=== PATIENT | female | born 1950 | race Caucasian/White ===

== ENCOUNTER 2018-12-21 03:52 | Inpatient (IN) ==
[2018-12-21] MEDS ORDERED: NS 500 ML IV ONE (03:58)
[2018-12-21] MEDS ORDERED: ZOFRAN IV ONE (03:58)
[2018-12-21] MEDS ORDERED: MORPHINE IV ONE (03:58)
[2018-12-21] MEDS ORDERED: LOPRESSOR IV ONE (04:21)
[2018-12-21 04:37] LABS: BASO# 0.04 X1000 (0.0-0.2); BASO% 0.4 % (0.0-0.8); EOS# 0.18 X1000 (0.0-0.7); EOS% 1.7 % (0.0-10.0); HEMOGLOBIN 14.7 g/dL (12.0-16.0); IMM GRAN# 0.05 X1000 (0.0-0.04); IMM GRAN% 0.5 % (0.0-0.5); LYMPH# 1.75 X1000 (1.2-3.4); LYMPH% 16.7 % (20.5-51.1); MCH 27.2 PG (27-31); MCHC 32.7 g/dL (33-37); MCV 83.2 FL (81-99); MONO# 0.71 X1000 (0.11-0.59); MONO% 6.8 % (1.7-9.3); MPV 12.1 FL (7.4-10.4); NEUT# 7.77 X1000 (1.4-6.5); NEUT% 73.9 % (42.2-75.2); PLT 189 X1000 (130-400); RBC 5.41 XMIL (4.2-5.4); RDW 15.4 % (11.5-14.5)
[2018-12-21 04:41] LABS: INR 0.81; PROTIME 11.8 Seconds (11.0-16.0)
[2018-12-21 04:42] LABS: PTT 27.7 Seconds (22.3-41.8)
[2018-12-21 05:05] LABS: AGAP 16; ALB/GLOB RATIO 1.1; ALBUMIN 3.7 g/dL (3.5-5.0); ALKALINE PHOSPHATASE 149 U/L (32-104); BUN 22 mg/dL (8-22); CALCIUM 9.2 mg/dL (8.8-10.2); CHLORIDE 105 mmol/L (98-107); CK PROFILE 51 U/L (24-173); COSMO 294; CREATININE 0.8 mg/dL (0.5-0.9); ESTIMATED GFR > 60; GLUCOSE 266 mg/dL (70-104); GOT 121 U/L (10-30); GPT 410 U/L (10-36); POTASSIUM 4.7 mmol/L (3.5-5.1); SODIUM 141 mmol/L (136-145); TCO2 20 mmol/L (25-35); TOTAL BILIRUBIN 0.32 mg/dL (0.20-1.00)
[2018-12-21] MEDS ORDERED: FENTANYL IV ONE (05:47)
--- NOTE | 2018-12-21 06:05 | PROVIDER DOCUMENTATION ---
HPI-General Adult - General Chief Complaint: Heart Alert Stated Complaint: possible stemi Time Seen by Provider: 12/21/18 03:58 Source: patient, EMS Allergies/Adverse Reactions: Patient Allergies Allergy/AdvReac Type Severity Reaction Status Date / Time adhesive tape Allergy skin Verified 07/19/16 16:49 blisters codeine Allergy ITCHING Verified 07/19/16 16:49 latex Allergy RASH Verified 07/19/16 16:49 Home Medications: Home Medication List Medication Instructions Recorded Confirmed Last Taken Type Pregabalin [Lyrica] 150 mg PO BID 04/01/15 07/19/16 07/19/16 08:00 History Hydrocodone/APAP 7.5 mg/325 mg 1 - 2 each PO Q4H PRN PRN #30 04/08/15 Unknown Rx [Fischer-7.5] tablet Cephalexin [Keflex] 500 mg PO BID #20 capsule 07/19/16 Unknown Rx - History of Present Illness -Gen Adult Nature of Presenting Problems: Pt presents with cp, pt awoke with cp to upper abdominal pain, had n/v x 1 and called EMS, pain is sharp, no radiation, pt denies f/c, cheney, sob, cough, diarrhea, pt is lying in bed in no acute distress. Location of Pain/Injury: reports: chest, abdomen Pain Radiation: reports: no radiation Quality of Pain: reports: sharp Severity: reports: moderate Onset/Duration: reports: 1-3 hours ago Timing: reports: still present Context/Activities at Onset: reports: none Modifying Factors: improves with: nothing Associated Symptoms: reports: nausea, vomiting Similar Symptoms Previously?: No Recently seen or treated by another doctor?: No Review of Systems - Adult - REVIEW OF SYSTEMS - ADULT Constitutional: reports: no symptoms reported Eyes: reports: no symptoms reported Ears, Nose, Mouth & Throat: reports: no symptoms reported Cardiovascular: reports: see HPI Respiratory: reports: no symptoms reported Gastrointestinal: reports: see HPI Genitourinary: reports: no symptoms reported Musculoskeletal: reports: no symptoms reported Integumentary: reports: no symptoms reported Neurological: reports: no symptoms reported Psychiatric: reports: no symptoms reported Endocrine: reports: no symptoms reported Hematologic/Lymphatic: reports: no symptoms reported Allergic/Immunologic: reports: no symptoms reported All Other Systems: Reviewed and Negative Past History - Adult - PAST MEDICAL HISTORY-ADULT Review of Records: reports: Old Records Reviewed, Nursing Assessment Review, Medications Reviewed, Social history reviewed & non-contributory. Major Childhood Illnesses: reports: denies history Cardiovascular: reports: denies history Respiratory: reports: denies history Gastrointestinal: reports: denies history Obstetrical/Gynecological: reports: denies history Genitourinary: reports: denies history Musculoskeletal: reports: denies history Neurological: reports: denies history Endocrine/Immune: reports: denies history Other Conditions: reports: denies history - FAMILY HISTORY Family History: reviewed, not pertinent Physical Exam-General - PHYSICAL EXAM-ADULT Initial Vital Signs Reviewed: Yes - CONSTITUTIONAL General Appearance: appears well - EYES Eyes: PERRL/EOMI - HEAD, EARS, NOSE, MOUTH & THROAT HENMT: normal ENT inspection - NECK Neck: normal inspection - RESPIRATORY Respiratory: lungs clear, no respiratory distress, no accessory muscle use - CARDIOVASCULAR Cardiovascular: regular rate, rhythm - GASTROINTESTINAL (ABDOMEN) Abdominal Exam: non tender, soft - LYMPHATIC Lymphatic: no adenopathy - MUSCULOSKELETAL Back Exam: normal inspection Extremity: normal range of motion - SKIN Integumentary: normal color - NEUROLOGIC Neurologic: grossly normal - PSYCHIATRIC Psych/Mental Status: normal mood/affect Progress - PLAN OF CARE/RESULTS Progress/Plan/Lab Results: Vital Signs - 8 hr 12/21/18 03:55 12/21/18 04:02 12/21/18 04:04 Temperature 97.9 F Pulse Rate 53 L 86 Respiratory Rate 18 Blood Pressure 178/120 207/88 191/91 O2 Sat by Pulse Oximetry 96 99 99 12/21/18 04:10 12/21/18 04:17 12/21/18 04:20 Temperature 97.9 F Pulse Rate 70 67 68 Respiratory Rate 16 16 12 Blood Pressure 212/95 212/95 O2 Sat by Pulse Oximetry 100 100 100 12/21/18 04:30 12/21/18 04:31 12/21/18 04:40 Temperature Pulse Rate 69 71 70 Respiratory Rate 27 H 18 9 L Blood Pressure 196/87 O2 Sat by Pulse Oximetry 99 100 100 12/21/18 04:50 12/21/18 04:51 12/21/18 05:00 Temperature 98 F Pulse Rate 66 70 65 Respiratory Rate 11 L 21 18 Blood Pressure 211/88 O2 Sat by Pulse Oximetry 98 99 100 12/21/18 05:01 12/21/18 05:10 Temperature Pulse Rate 66 64 Respiratory Rate 21 10 L Blood Pressure 207/88 O2 Sat by Pulse Oximetry 100 100 Laboratory Results - last 24 hr 12/21/18 12/21/18 12/21/18 04:10 04:10 04:10 WBC 10.50 RBC 5.41 H Hgb 14.7 Hct 45.0 MCV 83.2 MCH 27.2 MCHC 32.7 L RDW Std Deviation 15.4 H Plt Count 189 MPV 12.1 H Immature Gran % (Auto) 0.5 Neut % (Auto) 73.9 Lymph % (Auto) 16.7 L Gregg % (Auto) 6.8 Eos % (Auto) 1.7 Baso % (Auto) 0.4 Immature Gran # (Auto) 0.05 H Neut # (Auto) 7.77 H Lymph # (Auto) 1.75 Gregg # (Auto) 0.71 H Eos # (Auto) 0.18 Baso # (Auto) 0.04 PT 11.8 INR 0.81 PTT (Actin FS) 27.7 Sodium 141 Potassium 4.7 Chloride 105 Carbon Dioxide 20 L Anion Gap 16 BUN 22 Creatinine 0.8 Estimated GFR/1.73 m2 > 60 BUN/Creatinine Ratio 28 Glucose 266 H Calculated Osmolality 294 Calcium 9.2 Total Bilirubin 0.32 AST 121 H ALT 410 H Alkaline Phosphatase 149 H Creatine Kinase 51 Troponin T Total Protein 7.0 Albumin 3.7 Globulin 3.3 Albumin/Globulin Ratio 1.1 12/21/18 04:10 WBC RBC Hgb Hct MCV MCH MCHC RDW Std Deviation Plt Count MPV Immature Gran % (Auto) Neut % (Auto) Lymph % (Auto) Gregg % (Auto) Eos % (Auto) Baso % (Auto) Immature Gran # (Auto) Neut # (Auto) Lymph # (Auto) Gregg # (Auto) Eos # (Auto) Baso # (Auto) PT INR PTT (Actin FS) Sodium Potassium Chloride Carbon Dioxide Anion Gap BUN Creatinine Estimated GFR/1.73 m2 BUN/Creatinine Ratio Glucose Calculated Osmolality Calcium Total Bilirubin AST ALT Alkaline Phosphatase Creatine Kinase Troponin T < 0.010 Total Protein Albumin Globulin Albumin/Globulin Ratio Orders Category Date Time Status CT ABD/PELVIS W/IV CONT ONLY [CT] Stat Exams 12/21/18 05:09 Taken cxr [CHEST-1 VIEW] [RAD] Stat Exams 12/21/18 03:58 Taken CBC WITH ELECTRONIC DIFF [HEME] Stat Lab 12/21/18 04:10 Completed CK PROFILE [SP CHEM] Stat Lab 12/21/18 04:10 Completed COMPREHENSIVE METABOLIC PANEL [CHEM] Stat Lab 12/21/18 04:10 Completed PT [PROTIME WITH INR] [COAG] Stat Lab 12/21/18 04:10 Completed PTT [COAG] Stat Lab 12/21/18 04:10 Completed TROPONIN T Stat Lab 12/21/18 04:10 Completed 0.9% Sodium Chloride Inj [Ns] 500 ml Med 12/21/18 03:58 Discontinued IV 999 mls/hr Fentanyl Med 12/21/18 05:47 Discontinued 50 microgm IV NOW ONE Metoprolol [Lopressor] Med 12/21/18 04:21 Discontinued 5 mg IV NOW ONE Morphine Med 12/21/18 03:58 Discontinued 4 mg IV NOW ONE Ondansetron [Zofran] Med 12/21/18 03:58 Discontinued 8 mg IV NOW ONE EKG [EKG] Stat Ther 12/21/18 03:53 Ordered Result Diagrams: 12/21/18 04:10 12/21/18 04:10 Departure - Departure Date of Disposition Decision: 12/21/18 Time of Disposition Decision: 07:53 DIAGNOSIS: Perforated ulcer Disposition: ADMITTED INPATIENT 09 Certified Medical Emergency: Emergent Condition: Serious Referrals and Follow-Ups: Shelton Vernon MD [Primary Care Provider] - - Critical Care Note This patient required my direct & personal management of CC.: No Attestation - Physician/ ISIAH Attestation Patient care was provided by Advanced Practice Provider:: No The physician spent face to face time with patient:: Yes Advanced Practice Provider documentation review:: Supervising physician onsite and consulted in the evaluation and care of this patient. The physician did have a face to face encounter with the patient.
--- NOTE | 2018-12-21 06:54 | Diag Imaging Result Doc PS360 ---
EXAM: CHEST-1 VIEW 12/21/2018 HISTORY: chest pain TECHNIQUE: AP portable at 0429 COMMENT: The inspiration is less optimal than on 01/11/2011. There are no focal opacities. Considering differences in projection the heart size and pulmonary vascularity have not changed significantly. IMPRESSION: No acute disease. Electronically signed by Hussain Weems 12/21/2018 6:52 AM
[2018-12-21] MEDS ORDERED: ZOSYN 3.375 GM in NS 50 ML IV ONE (07:44)
[2018-12-21] MEDS ORDERED: DIPRIVAN 1% ONE (07:55)
[2018-12-21] MEDS ORDERED: VERSED ONE (07:55)
[2018-12-21] MEDS ORDERED: XYLOCAINE-MPF 2% ONE (07:55)
[2018-12-21] MEDS ORDERED: QUELICIN (DOSE) ONE (07:56)
[2018-12-21] MEDS ORDERED: FENTANYL ONE (07:56)
[2018-12-21] MEDS ORDERED: SODIUM CHLORIDE 0.9% 10 ML ONE (07:56)
[2018-12-21] MEDS ORDERED: DILAUDID IV ONE (08:09)
--- NOTE | 2018-12-21 09:16 | Diag Imaging Result Doc PS360 ---
EXAM: CT ABD/PELVIS W/IV CONT ONLY 12/21/2018 HISTORY: colitis TECHNIQUE: This exam was performed using automated exposure control, adjustment of mA or kV according to patient size, and/or use of iterative reconstruction technique. COMMENT: There is some dependent atelectasis in both lung bases. This is worse than on 10/08/2015 and there is platelike opacity in both the right middle lobe and lingula. This may in part be due to fibrosis as it was present at the time the previous study. There is ascites. This was not the case at the time the previous examination. The aorta is not distended. There are atherosclerotic calcifications. The mesenteric and renal arteries are patent. There is some retained fluid in the distal esophagus. There is a hiatal hernia. There has apparently been gastric bypass. The gastric remnant is distended with fluid which was not the case at the time the previous study. The portal vein is patent. The liver, pancreas, adrenal glands, and spleen are stable in appearance. There are some cortical cysts present in the kidneys and some cortical scarring is present over the right lower pole. This was also present at the time the previous study. There is some stool throughout the colon. There is no evidence of mucosal thickening in the colon and the small bowel is not particularly distended. There are gas bubbles adjacent to the duodenum including air-fluid level seen best between images 38 and 42 in the subhepatic region near the gallbladder fossa. There has been previous cholecystectomy. This fluid collection and extraluminal gas was not present at the time the previous study. Pelvis: There is no evidence of free fluid. The urinary bladder is slightly distended. There is no evidence of significant adenopathy. There has been previous hysterectomy. There is a fat collection between the external oblique muscle and the remainder of the pelvic wall on the right. This was also present at the time of the previous study. The regional skeleton is stable in appearance. IMPRESSION: Abnormal fluid and gas collection lateral to the duodenum which may be result of focal perforation. Ascites/peritonitis. Electronically signed by Hussain Weems 12/21/2018 9:14 AM
[2018-12-21] MEDS ORDERED: EPHEDRINE ONE (09:46)
[2018-12-21 10:01] LABS: URINE SOURCE CATH
[2018-12-21 10:07] LABS: BILIRUBIN URINE NEGATIVE (NEGATIVE); BLOOD URINE SMALL (NEGATIVE); COLOR YELLOW; GLUCOSE URINE 500 mg/dL (NEGATIVE); KETONE URINE 20 mg/dL (NEGATIVE); LEUKOCYTES URINE NEGATIVE (NEGATIVE); NITRITE URINE NEGATIVE (NEGATIVE); PROTEIN URINE 200 mg/dL (NEGATIVE); TURBIDITY URINE CLEAR (CLEAR); UROBILINOGEN URINE NORMAL (NORMAL)
[2018-12-21 10:08] LABS: UR EPITHELIAL CELLS <10 /HPF (<10); URINE BACTERIA NEGATIVE /HPF; URINE RBC <10 /HPF (<10); URINE WBC <10 /HPF (<10)
[2018-12-21] MEDS ORDERED: ROBINUL ONE (10:21)
[2018-12-21] MEDS ORDERED: NEOSTIGMINE ONE (10:21)
[2018-12-21] MEDS ORDERED: NEO-SYNEPHRINE 1% NASAL SPRAY ONE (10:36)
[2018-12-21] MEDS ORDERED: AMIDATE ONE (10:52)
[2018-12-21] MEDS: OFIRMEV 1000 MG/ISOTONIC SOLN 1,000 MG/100 ML BOTTLE ONE ×2 (11:50→20:29)
[2018-12-21] MEDS ORDERED: LR 1,000 ML ONE (11:52)
[2018-12-21] MEDS ORDERED: LR 1,000 ML IV ONE (13:01)
[2018-12-21] MEDS ORDERED: PROTONIX 80 MG in NS 80 ML IV ONE (13:01)
[2018-12-21] MEDS ORDERED: ZOFRAN IV PRN (13:01)
[2018-12-21] MEDS: ZOSYN 3.375 GM in NS 50 ML IV SCH ×2 (13:15→18:36)
[2018-12-21] MEDS: OFIRMEV 1000 MG/ISOTONIC SOLN 1,000 MG/100 ML BOTTLE IV SCH ×2 (13:15→18:36)
[2018-12-21] MEDS: DILAUDID IV PRN ×2 (13:16→21:26)
[2018-12-21] MEDS ORDERED: LOPRESSOR IV PRN (13:37)
[2018-12-21] MEDS: PROTONIX 80 MG in NS 80 ML IV SCH ×2 (14:00→23:45)
[2018-12-21] MEDS: HUMALOG SUBQ SCH ×2 (15:41→21:09)
[2018-12-21] MEDS: PERIDEX MT SCH (21:26)
--- NOTE | 2018-12-21 22:25 | HISTORY AND PHYSICAL ---
DATE: 12/21/2018 HISTORY OF PRESENT ILLNESS: This is a 68-year-old female who has a history of a sleeve gastrectomy several years ago by Dr. Oliver. She had a 50 pounds weight loss and subsequent regain of 30 pounds. She also has a history of a renal cell carcinoma treated with partial nephrectomy, and breast carcinoma treated with bilateral mastectomy and implant reconstruction. Last night she developed severe epigastric abdominal pain, diaphoresis. Prior to this, she was in her usual state of health. She denies smoking, alcohol or NSAID abuse. She has had colonoscopies within the year that was, apparently, normal. She came to the ER, where a CT scan was obtained that showed free air, free fluid concerning for perforated ulcer of the duodenum. MEDICAL HISTORY: 1. History of breast cancer, history of renal cell cancer. 2. Diabetes. 3. Hypertension. SURGICAL HISTORY: 1. Laparoscopic sleeve gastrectomy by Dr. Oliver several years ago. 2. Partial nephrectomy, I believe on the right. 3. Bilateral mastectomies with emergency services dispatcher reconstruction. SOCIAL HISTORY: No tobacco, alcohol, or drugs. FAMILY HISTORY: Reviewed and noncontributory. REVIEW OF SYSTEMS: Ten point negative. OBJECTIVE: General: She is afebrile. Pulse is 72. Blood pressures have been 180s to 200 systolic, oxygen saturation 99% on 2 L. General: She is alert, but in obvious discomfort. HEENT: No scleral icterus. No cervical mass. Cardiovascular: Normal rate. Pulmonary: No increased work of breathing. Abdomen: Soft. There is guarding and rigidity throughout. It is distended. Integument: Diaphoretic without jaundice. Psychiatric: Very anxious. Neurologic: No focal deficits. Peripheral vascular: She does have lower extremity edema. Lymphatic: No cervical adenopathy. Musculoskeletal: Normal muscle tone throughout. LABS: White count 10, hematocrit 45, platelets 189,000. INR 0.81. Creatinine 0.8. Glucose 266, bilirubin 0.32, AST, ALT and alkaline phosphatase are elevated. Troponin's are normal. Albumin is 3.7. I reviewed her CT scan, it shows free fluid and air around the duodenum, with changes consistent with sleeve gastrectomy and bilateral breast implants. ASSESSMENT AND PLAN: A 68-year-old female with apparent perforated ulcer. She has peritonitis, free air and free fluid on exam. I have recommended emergent operation. We will place an NG tube. Start on antibiotics. I have discussed risks of bleeding, infection, the possibility of gastrectomy, the possibility of a feeding jejunostomy, possible ostomy, possible resections of her stomach, small bowel, or colon. She understands all this and consents. She understands the emergent nature and the possibility of requiring subsequent operations as well as cardiopulmonary complication. We will treat her pain, start her on antibiotics, and go to the operating room emergently this morning. cc: MD Shelton Vilchis MD
[2018-12-22] MEDS: DILAUDID IV PRN ×5 (01:24→21:34)
[2018-12-22] MEDS: ZOSYN 3.375 GM in NS 50 ML IV SCH ×5 (01:56→18:38)
[2018-12-22] MEDS: OFIRMEV 1000 MG/ISOTONIC SOLN 1,000 MG/100 ML BOTTLE IV SCH ×3 (01:56→06:32)
--- NOTE | 2018-12-22 02:12 | ED EKG INTERP ---
This chart was entered by Sandra Figueroa Scribe, acting as scribe for Anton Villegas MD. EKG Interpretation - EKG Time of EKG reading by physician:: 03:55 EKG Read and Signed by:: Anton Villegas EKG Interpretation (*Must complete 3 of following elements*): Abnormal Rate: 60 Rhythm: NSR [place]: left QRS: other (septal infarct) [place] Interval: normal ST Wave: normal Attestation - Physician/ ISIAH Attestation Patient care was provided by Advanced Practice Provider:: No The physician spent face to face time with patient:: Yes Advanced Practice Provider documentation review:: Supervising physician onsite and consulted in the evaluation and care of this patient. The physician did have a face to face encounter with the patient. This chart was documented by the indicated scribe, (Sandra Figueroa Scribe) and accurately reflects the services I performed and decisions made by me, Anton Villegas MD, as attested by the provider's signature.
[2018-12-22] MEDS: HUMALOG SUBQ SCH ×5 (05:49→21:00)
[2018-12-22 06:24] LABS: HEMATOCRIT 44.3 % (37.0-47.0); HEMOGLOBIN 14.2 g/dL (12.0-16.0); MCH 27.3 PG (27-31); MCHC 32.1 g/dL (33-37); MCV 85.2 FL (81-99); MPV 11.8 FL (7.4-10.4); RBC 5.2 XMIL (4.2-5.4); RDW 16.3 % (11.5-14.5); WBC 7.54 X1000 (4.8-10.8)
[2018-12-22 07:03] LABS: CALCIUM 7.4 mg/dL (8.8-10.2); CREATININE 1.2 mg/dL (0.5-0.9); POTASSIUM 4.8 mmol/L (3.5-5.1)
--- NOTE | 2018-12-22 07:20 | OPERATIVE NOTE ---
PROCEDURE DATE: 12/21/2018 PREOPERATIVE DIAGNOSIS: Perforated viscus. POSTOPERATIVE DIAGNOSES: 1. Perforated duodenal ulcer. 2. Internal hernia defect. 3. Diffuse bilious peritonitis. PROCEDURES PERFORMED: 1. Exploratory laparotomy with Chuck patch repair of perforated duodenal ulcer. 2. Repair of Liriano's defect. 3. Biopsy of duodenal ulcer. SPECIMENS: Biopsy of duodenal ulcer. SURGEON: Dr. Serge Luna. ANESTHESIA: General. INDICATIONS: A 68-year-old female who has a history of bariatric surgery. Initially this was billed as a sleeve gastrectomy, however, intraoperative findings consistent with a Orestes-en-Y gastric bypass, who presented with acute onset of abdominal discomfort. OPERATIVE FINDINGS: There was diffuse bilious peritonitis with a small perforation of the lateral aspect of the second portion of the duodenum. There was Orestes-en-Y anatomy. There appeared to be no abnormality to the gastrojejunostomy or the jejunojejunostomy. There was no evidence of distal obstruction or internal herniation. There was a large Liriano's defect that we closed. There is a scar to her lower midline from previous partial nephrectomy. OPERATIVE NOTE: Risks, benefits, alternatives were discussed with the patient, she consented for procedure. She was initially seen in the emergency department and noted to have peritonitis, was taken emergently to the operating room. She was on scheduled antibiotics. She was placed in supine position. General anesthesia was induced. Her abdomen was prepped widely with chlorhexidine solution after Craven catheter was placed, and we made a midline incision, carried this down the fascia. The fascia was incised, the abdomen was entered in open controlled fashion. We evacuated a large volume of bile in all quadrants of the abdomen. We suctioned this all until clear. There was significant staining in the right upper quadrant underneath the liver. There is post cholecystectomy changes as well. We identified a lateral perforation with fresh bile emanating from this. We performed a Zhang maneuver to mobilize the duodenum up. We then mobilized the tongue and well vascularized omentum off the transverse colon. Prior to doing this, we freshened the edge of the ulcer and sent this as biopsy. There was healthy bleeding, well perfused tissue here. Given the position of the ulcer, we elected to close it with full-thickness interrupted 3-0 silk sutures and then patched this with the tongue of omentum with a second layer of 3-0 silks. There was good closure here. There was no tension on the repair. The tissues were well perfused. We placed it back in the right upper quadrant and then copiously irrigated the abdomen. We passed the nasogastric tube down the gastric remnant. I did run the bowel starting distally proximally, ensured there was no herniation. Placed it back in neutral position. The jejunojejunostomy defect was well closed. However, there was an antecolic Orestes limb with good defect here. We closed this to, hopefully, prevent future internal herniation. After irrigating the abdomen with greater than 3 L of fluid, we placed a Theron drain in the right upper quadrant. There was no evidence of ongoing bile leakage. The Theron drain was brought out through a stab incision, was secured with a nylon suture. We changed our gloves. A wound protector was used during the case. We closed the fascia with a running #1 looped PDS suture, irrigating the superficial wound, we closed the skin with surgical clips. Dressing was applied. She was awoken, transferred to the ICU. I did speak with the family. cc: MD Shelton Vilchis MD
--- NOTE | 2018-12-22 08:08 | CONSULTATION ---
DATE OF CONSULTATION: 12/21/2018 CONSULTING PHYSICIAN: Dr. Serge Luna. REASON FOR CONSULTATION: Medical management. HISTORY OF PRESENT ILLNESS: The patient is a 68-year-old, white female who presented to the ER early this morning after having some vomiting and abdominal pain. She was found to have evidence of free fluid in her abdomen suggesting perforation. She was taken to surgery and perforation was repaired. About 7 o'clock last evening, she ate supper and had an episode of nausea and vomiting. She had no hematemesis. There has been no melena and no diarrhea. She has had no fever. There is no history of ulcer disease. There is a long history of diabetes and relative poor compliance. PAST SURGERY HISTORY: Surgery includes cholecystectomy, hysterectomy, and breast surgery for breast cancer. PRESENT MEDICATIONS: Keflex, [place] 7.5/325 q.6 hours p.r.n., and Lyrica 150 mg b.i.d. for peripheral neuropathy. ALLERGIES: Adhesive tape, codeine, and latex. PHYSICAL EXAMINATION: The patient is postop with NG tube in place. HEENT: Pupils equal, round, and reactive to light. Mucous membranes are slightly pale. Heart: Regular in rate and rhythm with no murmur, rub, or gallop. Lungs: Clear with no rales or rhonchi. Abdomen: Soft. Extremities: No cyanosis, clubbing, or edema. Rectal and Genitalia: Deferred. LABORATORY DATA: Hemoglobin 14.7, hematocrit 45.0, white blood count 10,500 with normal differential. Sodium 141, potassium 4.7, BUN 22, creatinine 0.8, glucose 266. AST 121, ALT 410, and alkaline phosphatase 149. CPK 51, troponin less than 0.01. Total protein 7.0, albumin 3.1, globulin 3.3. IMPRESSION: 1. Perforated viscus, probably related to duodenal ulcer. 2. Diabetes. 3. Diabetic neuropathy of her feet. 4. History of breast cancer. PLAN: Manage her diabetes with sliding scale insulin and blood pressure control with Lopressor. cc: Shelton Vernon MD
[2018-12-22] MEDS ORDERED: NS 1,000 ML IV ONE (08:09)
[2018-12-22] MEDS: PERIDEX MT SCH ×2 (08:16→21:34)
[2018-12-22] MEDS: LOVENOX SUBQ SCH (08:19)
[2018-12-22] MEDS: PROTONIX 80 MG in NS 80 ML IV SCH ×2 (09:24→18:38)
--- NOTE | 2018-12-22 10:17 | PROGRESS NOTE ---
DATE: 12/22/2018 OBJECTIVE: Vital signs: Temperature 98, heart rate 88, respirations 18, blood pressure 69/50, sitting in a chair. General: The patient is alert, but sedated related to pain medicine. Abdomen: Her abdomen is soft. There was no vomiting overnight. Chest: Is clear. LABORATORY: Hemoglobin 14.2, hematocrit 44.3, white blood count 7500. Sodium 140, potassium 4.8, BUN 21, creatinine 1.2, glucose 196, calcium 7.4. PLAN: Plan give bolus of normal saline, 1 L. Keep in ICU today for close observation and assistance. cc: Shelton Vernon MD
--- NOTE | 2018-12-22 21:26 | GENERAL SURGERY PROGRESS NOTE ---
DATE: 12/22/2018 SUBJECTIVE: Doing okay. No flatus. Hemodynamically she is stable. NG tube is bothersome to her. ELIJAH drain remains serosanguineous with no bile. OBJECTIVE: Her abdomen is mildly distended. Incision is intact. White count 7, hematocrit 44. Creatinine is 1.2, glucose as high as 196. ASSESSMENT AND PLAN: A 68-year-old female status post repair of duodenal ulcer. She is on Zosyn. She is on a PPI drip. Dr. Vernon is managing her hypertension and blood sugars. Keeping her NPO for now. Plan on removing the nasogastric tube tomorrow. Begin gradually advancing her diet with return of bowel function. cc: MD Shelton Vilchis MD
[2018-12-23] MEDS: ZOSYN 3.375 GM in NS 50 ML IV SCH ×4 (01:29→18:00)
[2018-12-23] MEDS: DILAUDID IV PRN ×3 (02:42→19:20)
[2018-12-23] MEDS: PROTONIX 80 MG in NS 80 ML IV SCH ×2 (05:22→15:28)
[2018-12-23] MEDS: HUMALOG SUBQ SCH ×4 (06:07→20:16)
--- NOTE | 2018-12-23 08:00 | EKG Report ---
Test Performed on : 12/21/2018 03:55:09 AM Test Reason : cp Blood Pressure : / mmHG Vent. Rate : 060 BPM Atrial Rate : 060 BPM P-R Int : 174 ms QRS Dur : 090 ms QT Int : 424 ms P-R-T Axes : 054 -47 035 degrees QTc Int : 424 ms Normal sinus rhythm. Left axis deviation Septal infarct (cited on or before 01-APR-2015) Abnormal ECG When compared with ECG of 01-APR-2015 14:23, No significant change was found Unconfirmed Result
[2018-12-23] MEDS: LOVENOX SUBQ SCH (08:04)
[2018-12-23] MEDS: PERIDEX MT SCH ×2 (08:05→20:17)
--- NOTE | 2018-12-23 08:38 | PROGRESS NOTE ---
DATE: 12/23/2018 Vital signs stable with temperature 98.0 degrees, heart rate 98, respirations 13, blood pressure 140/62, O2 saturation on room air 96%. The patient complains of increasing pain not covered by her pain medicine. She has had no nausea. Chest is clear. There is some mild dried blood on her surgical dressing. Abdomen is soft. Bowel sounds are inactive. PLAN: Check BMP today and CBC tomorrow. Dilaudid is increased to 0.5 mg q.3 hours p.r.n. pain. Continue to get up in a chair and increase movement. cc: Shelton Vernon MD
--- NOTE | 2018-12-23 09:08 | EKG Report ---
Test Performed on : 12/22/2018 12:17:07 PM Test Reason : ICU. No order in [place] Blood Pressure : / mmHG Vent. Rate : 087 BPM Atrial Rate : 087 BPM P-R Int : 140 ms QRS Dur : 094 ms QT Int : 416 ms P-R-T Axes : 070 007 135 degrees QTc Int : 500 ms Sinus rhythm. with occasional premature ventricular complexes. Nonspecific ST and T wave abnormality Abnormal ECG When compared with ECG of 21-DEC-2018 03:55, (Unconfirmed) premature ventricular complexes. are now present QRS axis shifted right Criteria for Septal infarct are no longer present Nonspecific T wave abnormality now evident in Inferior leads Nonspecific T wave abnormality, worse in Lateral leads QT has lengthened Confirmed by Maikel PEREZ, Duane Hung ([id number]) on 12/23/2018 9:28:50 AM
[2018-12-23 09:54] LABS: CREATININE 1.1 mg/dL (0.5-0.9); POTASSIUM 4.5 mmol/L (3.5-5.1)
[2018-12-23 10:21] LABS: CALCIUM 6.9 mg/dL (8.8-10.2)
[2018-12-23] MEDS ORDERED: CALCIUM GLUCONATE 1 GM in NS 50 ML IV ONE (10:28)
--- NOTE | 2018-12-23 16:09 | GENERAL SURGERY PROGRESS NOTE ---
DATE: 12/23/2018 SUBJECTIVE: Doing okay. No bowel function yet. ELIJAH drain is serosanguineous. OBJECTIVE: On exam, her abdomen is soft. Incisions intact. NG tube has minimal output. No fevers. No tachycardia. Blood pressure 130/60. LABORATORY DATA: I reviewed her labs. Creatinine is 1.1. Glucose is in the 170s. ASSESSMENT/PLAN: 68-year-old female that is status post repair of duodenal ulcer. We will discontinue her NG tube and a Craven catheter today. Encourage him to be out of bed. She is on antibiotics as well as a PPI drip and transition this to b.i.d. next couple days. cc: MD Shelton Vilchis MD
[2018-12-24] MEDS: PROTONIX 80 MG in NS 80 ML IV SCH ×2 (00:50→13:52)
[2018-12-24] MEDS: ZOSYN 3.375 GM in NS 50 ML IV SCH ×4 (00:54→18:47)
[2018-12-24 06:09] LABS: BASO# 0.02 X1000 (0.0-0.2); BASO% 0.3 % (0.0-0.8); EOS# 0.06 X1000 (0.0-0.7); EOS% 0.8 % (0.0-10.0); HEMATOCRIT 35.2 % (37.0-47.0); HEMOGLOBIN 11.1 g/dL (12.0-16.0); IMM GRAN# 0.06 X1000 (0.0-0.04); IMM GRAN% 0.8 % (0.0-0.5); LYMPH# 0.84 X1000 (1.2-3.4); LYMPH% 10.8 % (20.5-51.1); MCH 27.2 PG (27-31); MCHC 31.5 g/dL (33-37); MCV 86.3 FL (81-99); MONO# 1.06 X1000 (0.11-0.59); MONO% 13.6 % (1.7-9.3); MPV 11.7 FL (7.4-10.4); NEUT# 5.74 X1000 (1.4-6.5); NEUT% 73.7 % (42.2-75.2); PLT 208 X1000 (130-400); RBC 4.08 XMIL (4.2-5.4); RDW 16.3 % (11.5-14.5); WBC 7.78 X1000 (4.8-10.8)
[2018-12-24] MEDS: DILAUDID IV PRN ×5 (06:10→23:26)
[2018-12-24] MEDS: HUMALOG SUBQ SCH ×4 (06:45→21:04)
[2018-12-24] MEDS: LOVENOX SUBQ SCH (09:17)
[2018-12-24] MEDS: PERIDEX MT SCH ×3 (09:17→20:10)
--- NOTE | 2018-12-24 09:25 | PROGRESS NOTE ---
DATE: 12/24/2018 OBJECTIVE: Vital signs stable with temperature 97.5 degrees, heart rate 96, respirations 16, blood pressure 139/52, and O2 saturation on room air 92%. Patient is somewhat confused, but sitting up in a chair. She states she had some gas passed per rectum late last evening and early this morning. ELIJAH drain has minimal drainage. LABORATORY: Hemoglobin 11.1, hematocrit 35.2, white blood count 7800 with 74% neutrophils. Sugars are less than 200. Routine insulin will be restarted after she is able to take p.o. liquids or solids. Also regular p.o. medicines will be restarted after she can take p.o. liquids. PLAN: Continue to ambulate. Maikel-Betts drain may be removed soon. I cc: Shelton Vernon MD
[2018-12-24] MEDS ORDERED: PROTONIX IV SCH (11:30)
[2018-12-24] MEDS ORDERED: LABETALOL IV ONE (12:00)
[2018-12-24] MEDS ORDERED: SODIUM CHLORIDE 0.9% INJ SCH (13:45)
[2018-12-24] MEDS: NEXIUM IV SCH (13:58)
--- NOTE | 2018-12-24 18:29 | GENERAL SURGERY PROGRESS NOTE ---
DATE: 12/24/2018 SUBJECTIVE: Doing okay. OBJECTIVE: No fevers. No tachycardia. Abdomen is soft. Dressing is intact. ELIJAH drain is serosanguineous. LABORATORY DATA: White count is 7, hematocrit 35. Glucose 180. ASSESSMENT AND PLAN: A 68-year-old female status post repair of duodenal ulcer. Overall she is doing okay. She remains on PPI. She is on antibiotics, prophylactic Lovenox. We will continue to monitor her closely. cc: MD Shelton Vilchis MD
[2018-12-25] MEDS: ZOSYN 3.375 GM in NS 50 ML IV SCH ×4 (01:27→20:53)
[2018-12-25] MEDS: NEXIUM IV SCH (01:28)
[2018-12-25] MEDS: DILAUDID IV PRN ×2 (02:36→06:34)
[2018-12-25] MEDS: HUMALOG SUBQ SCH ×4 (06:34→21:34)
[2018-12-25] MEDS: LOVENOX SUBQ SCH (10:35)
[2018-12-25] MEDS: PERIDEX MT SCH ×2 (10:35→20:54)
[2018-12-25] MEDS: NORCO-10 PO PRN ×2 (10:36→20:54)
[2018-12-25] MEDS: HYZAAR 50/12.5 MG PO SCH (10:45)
[2018-12-25] MEDS: LYRICA PO SCH ×2 (10:51→20:54)
--- NOTE | 2018-12-25 10:53 | PROGRESS NOTE ---
DATE: 12/25/2018 Vital signs stable with temperature 98.2 degrees, heart rate 88, respirations 18, blood pressure 184/93, O2 saturation on room air 100%. Patient is weak and has difficulty moving from her bed to a chair. Physical therapy is assisting. Orders are to ambulate her with non physical therapy t.i.d. The patient desires to go to rehab following discharge for additional strengthening. Last 2 blood sugars were 168 and 138. PLAN: Clear liquids p.o., continued mobilization, p.o. medications. cc: Shelton Vernon MD
[2018-12-25] MEDS ORDERED: BENADRYL PO ONE (12:45)
[2018-12-25] MEDS ORDERED: BENADRYL PO PRN ×2 (12:45→13:00)
[2018-12-25] MEDS: PROTONIX PO SCH ×2 (12:54→18:22)
--- NOTE | 2018-12-25 14:43 | GENERAL SURGERY PROGRESS NOTE ---
DATE: 12/25/2018 SUBJECTIVE: She is complaining about her back hurting. ELIJAH drainage remains serosanguineous. Abdomen is soft. No fevers, no tachycardia overnight. She is on Lovenox. She is on a PPI and Zosyn. ASSESSMENT/PLAN: A 68-year-old female status post perforated duodenal ulcer. She needs to be out of bed moving more. Will work on her pain control. She does have chronic pain issues. Clear liquids today; we will get her full liquids tomorrow. Remove her drain in the next day or so if it remains nonbilious. I am going out of town and will have partial coverage for me while I am out. cc: MD Shelton Vilchis MD
[2018-12-25] MEDS: GLUCOPHAGE PO SCH (18:22)
[2018-12-26] MEDS: ZOSYN 3.375 GM in NS 50 ML IV SCH ×4 (01:09→18:54)
[2018-12-26] MEDS: NORCO-10 PO PRN ×3 (02:30→21:21)
[2018-12-26] MEDS: HUMALOG SUBQ SCH ×4 (06:38→23:36)
[2018-12-26] MEDS: PROTONIX PO SCH ×2 (06:39→18:52)
[2018-12-26] MEDS: LOVENOX SUBQ SCH (08:41)
[2018-12-26] MEDS: LYRICA PO SCH ×2 (08:41→21:17)
[2018-12-26] MEDS: GLUCOPHAGE PO SCH ×2 (08:41→17:22)
[2018-12-26] MEDS: PERIDEX MT SCH ×2 (08:41→21:18)
[2018-12-26] MEDS: HYZAAR 50/12.5 MG PO SCH (08:41)
--- NOTE | 2018-12-26 08:44 | PROGRESS NOTE ---
DATE: 12/26/2018 VITAL SIGNS: Temperature 98.1 degrees, heart rate 70, respirations 15, blood pressure 101/39, O2 sat on room air 94%. Patient is tolerating p.o. liquids without nausea. She is not getting up much to ambulate. She complains with mild right-sided mid abdominal discomfort. Abdomen is soft. PLAN: Increase activity, increase diet. Rehab when a bed is available. cc: Shelton Vernon MD
[2018-12-27] MEDS: ZOSYN 3.375 GM in NS 50 ML IV SCH ×4 (01:40→21:11)
--- NOTE | 2018-12-27 02:40 | GENERAL SURGERY PROGRESS NOTE ---
DATE: 12/26/2018 SUBJECTIVE: She is having intermittent nausea and weakness, but she did eat some soft food today and has ambulated down the henley. OBJECTIVE: She is afebrile. Vital signs are stable.General: She is awake, alert, and oriented x3. No acute distress. Cardiovascular: Regular rate and rhythm. Respiratory: No work of breathing. Gastrointestinal: Soft, nondistended. Mildly tender. Dressing is clean and dry. LABORATORY: None today. ASSESSMENT AND PLAN: A 68-year-old female status post Chuck patch repair of perforated duodenal ulcer. Overall, she seems to be making slow improvement. We will continue her soft diet and daily therapy, and she will go to rehab when a bed is available. I may remove the drain tomorrow. cc: MD Shelton Woods MD
[2018-12-27] MEDS: PROTONIX PO SCH ×2 (06:22→18:44)
[2018-12-27] MEDS: HUMALOG SUBQ SCH ×4 (07:03→21:09)
--- NOTE | 2018-12-27 08:42 | Diag Imaging Result Doc PS360 ---
EXAM: CHEST-PORTABLE 12/27/2018 HISTORY: SOB TECHNIQUE: AP portable upright at 0832 COMMENT: The inspiration is suboptimal. There is atelectasis or pneumonia in both lung bases which was not the case on 12/21/2018. The heart size appears to be enlarged. There are surgical skin clips in the upper abdomen. There is an apparent drain in the subhepatic space on the right. IMPRESSION: Bibasilar atelectasis. Electronically signed by Hussain Weems 12/27/2018 8:40 AM
[2018-12-27] MEDS: NS 1,000 ML IV SCH (10:25)
--- NOTE | 2018-12-27 10:39 | PROGRESS NOTE ---
DATE: 12/27/2018 SUBJECTIVE: The patient was ambulatory in the henley yesterday. She talked about dying and her late last night to family. She had a sudden episode of unresponsiveness and hypoxia this morning requiring a mask, and her being placed in Trendelenburg. Venous Doppler study of her legs revealed no clots. Chest x-ray showed basilar atelectasis versus pneumonia. She had a low-grade temperature last night of 99.4 and this morning 99.1. Last white blood count 521 with 7800 with 74% neutrophils. She was seen by me this morning while having her venous Doppler study. She would not arouse or speak to verbal stimulation. PLAN: She will need to be kept until her respiratory mental status improves. CT scan of her head is ordered as well as CT angiogram of her chest. A rehab bed was ready today, but due to her episode this morning, she will be kept probably until Sunday. Dr. Gandara is on-call for me this weekend. cc: Shelton Vernon MD
[2018-12-27] MEDS: HYZAAR 50/12.5 MG PO SCH (10:43)
[2018-12-27] MEDS: PERIDEX MT SCH ×2 (10:43→21:11)
[2018-12-27] MEDS: LOVENOX SUBQ SCH (10:44)
[2018-12-27] MEDS: GLUCOPHAGE PO SCH ×2 (10:44→18:44)
[2018-12-27] MEDS: LYRICA PO SCH ×2 (10:44→21:10)
[2018-12-27] MEDS: TYLENOL PO PRN (10:45)
[2018-12-27 11:18] LABS: BASO# 0.06 X1000 (0.0-0.2); BASO% 0.4 % (0.0-0.8); CALCIUM 8.3 mg/dL (8.8-10.2); CREATININE 2.1 mg/dL (0.5-0.9); EOS# 0.13 X1000 (0.0-0.7); EOS% 0.8 % (0.0-10.0); HEMOGLOBIN 9.5 g/dL (12.0-16.0); IMM GRAN# 0.62 X1000 (0.0-0.04); IMM GRAN% 3.8 % (0.0-0.5); LYMPH# 1.19 X1000 (1.2-3.4); LYMPH% 7.3 % (20.5-51.1); MCH 27.1 PG (27-31); MCHC 31.7 g/dL (33-37); MCV 85.5 FL (81-99); MONO# 1.85 X1000 (0.11-0.59); MONO% 11.3 % (1.7-9.3); MPV 10.8 FL (7.4-10.4); NEUT# 12.46 X1000 (1.4-6.5); NEUT% 76.4 % (42.2-75.2); PLT 294 X1000 (130-400); POTASSIUM 3.3 mmol/L (3.5-5.1); RBC 3.51 XMIL (4.2-5.4); RDW 15.9 % (11.5-14.5); WBC 16.31 X1000 (4.8-10.8)
[2018-12-27 11:39] LABS: BANDS 6 % (0-1); LYMPHS 2 % (21-51); MONO 8 % (1-9); SEGS 80 % (42-75)
--- NOTE | 2018-12-27 13:15 | Diag Imaging Result Doc PS360 ---
EXAM: CT HEAD W/O CONTRAST HISTORY: acute mental change TECHNIQUE: CT head without contrast COMPARISON: 07/19/2016 FINDINGS: No parenchymal hemorrhage. No epidural or subdural hematoma. No subarachnoid hemorrhage. There are chronic microvascular ischemic changes. No mass identified on this noncontrasted exam. No hydrocephalus. No sinus opacification. IMPRESSION: 1.No hemorrhage 2.Chronic microvascular ischemic changes This exam was performed using automated exposure control, adjustment of mA or kV according to patient size, and/or use of iterative reconstruction technique. Electronically signed by Hossein Jenkins 12/27/2018 1:13 PM
--- NOTE | 2018-12-27 14:14 | Diag Imaging Result Doc PS360 ---
EXAM: LUNG SCAN / VQ 12/27/2018 HISTORY: possible VTE TECHNIQUE: Ventilation/perfusion lung scan, 32.9 mCi of technetium 99m DTPA aerosol and 5.7 mCi of technetium 99m MAA intravenously. COMMENT: There is no evidence of ventilation/perfusion mismatch. No absolute segmental perfusion defect is present. IMPRESSION: Low probability for pulmonary embolus. Electronically signed by Hussain Weems 12/27/2018 2:11 PM
--- NOTE | 2018-12-27 14:45 | GENERAL SURGERY PROGRESS NOTE ---
DATE: 12/27/2018 SUBJECTIVE: This morning the patient apparently has had a change in her status. She is more somnolent and difficult to arouse. She has had hypoxia and a fever. She did walk down the henley last night but has been very weak in general. She denies headache, nausea, vomiting, chest pain, shortness of breath, or abdominal pain. OBJECTIVE: Vital Signs: Current temperature is 101. T-max last night at 8 o'clock was 102.1. Pulse is in the 90s. Respiratory rate is 14 to 16. She did have a hypotensive episode at 7:57 this morning where she was 78/51. Now her blood pressure is 114/43. O2 saturation ranges from 77% to 100%. General: She is somnolent but arousable with stimulation. She is oriented to her name and place and knows her sister. She missed the current year by 1 year. CV: Regular rate and rhythm. There is a murmur appreciated. Respiratory: Bilateral breath sounds. No increased work of breathing. No wheezing or rales appreciated. GI: Soft and nontender. Good bowel sounds. Incision is clean, dry, and intact. ELIJAH drain is without bile. Extremities: Her hands and feet appear to have good color and temperature. No evidence of perfusion abnormality of the extremities. LABORATORY DATA: Pending. IMAGING: Chest x-ray this morning shows bibasilar atelectasis or pneumonia. It is different from the prior on 12/21/2018. ASSESSMENT AND PLAN: A 68-year-old female status post Chuck patch repair of perforated duodenal ulcer. She had seemed to be making some progress, however, overnight she now has fever, hypoxia, decreased mentation, and episodes of hypotension. Workup is including a CBC, CMP, CT angiogram of the chest and CT of the head. We will follow these results today. She is on Zosyn and may need to add vancomycin for hospital-acquired pneumonia. We will discuss with Dr. Vernon once results are back. cc: MD Shelton Woods MD
[2018-12-27 16:57] LABS: INR 1.31; PROTIME 17.3 Seconds (11.0-16.0)
[2018-12-27 16:58] LABS: PTT 46.2 Seconds (22.3-41.8)
[2018-12-27] MEDS ORDERED: VANCOMYCIN IV PER PHARMACY MISC SCH (17:00)
[2018-12-27 17:47] LABS: CK-MB 9.14 ng/mL (0.0-5.0)
[2018-12-27] MEDS ORDERED: VANCOMYCIN 1,600 MG in NS 250 ML IV ONE (18:00)
[2018-12-27] MEDS: NORCO-10 PO PRN (23:25)
--- NOTE | 2018-12-28 00:39 | Extremity Venous Study ---
PROCEDURE NAME: Venous U/S Bilateral Legs - 12/27/2018 REQUEST PHYSICIAN: Dr. Vernon. READING PHYSICIAN: Dr. Sesay. CEMENT TESTER ASSISTANT: Wil. INDICATION: Hypoxia and fever postoperatively. FINDINGS: The deep and superficial veins of the lower extremities were imaged throughout their course. They are compressible, patent, and without thrombus. A cystic area is noted in the right popliteal fossa measuring 1.9 cm in greatest dimension. INTERPRETATION: No DVT or SVT of either lower extremity. There is a small right popliteal cyst. cc: MD Shelton Woods MD
[2018-12-28] MEDS: ZOSYN 3.375 GM in NS 50 ML IV SCH ×4 (03:20→22:50)
[2018-12-28] MEDS: NS 1,000 ML IV SCH ×2 (03:20→16:53)
[2018-12-28] MEDS: PROTONIX PO SCH ×3 (05:44→18:12)
[2018-12-28] MEDS: HUMALOG SUBQ SCH ×4 (06:53→21:15)
[2018-12-28 07:49] LABS: CREATININE 3.1 mg/dL (0.5-0.9); POTASSIUM 3.6 mmol/L (3.5-5.1)
[2018-12-28 07:56] LABS: BASO# 0.05 X1000 (0.0-0.2); BASO% 0.3 % (0.0-0.8); EOS% 1.5 % (0.0-10.0); HEMOGLOBIN 9.4 g/dL (12.0-16.0); IMM GRAN# 0.53 X1000 (0.0-0.04); IMM GRAN% 2.7 % (0.0-0.5); LYMPH# 1.91 X1000 (1.2-3.4); LYMPH% 9.8 % (20.5-51.1); MCH 26.9 PG (27-31); MCHC 31.3 g/dL (33-37); MONO# 1.67 X1000 (0.11-0.59); MONO% 8.5 % (1.7-9.3); MPV 11.2 FL (7.4-10.4); NEUT# 15.08 X1000 (1.4-6.5); NEUT% 77.2 % (42.2-75.2); PLT 284 X1000 (130-400); RBC 3.49 XMIL (4.2-5.4); RDW 16.1 % (11.5-14.5); WBC 19.54 X1000 (4.8-10.8)
[2018-12-28 08:49] LABS: BANDS 14 % (0-1); LYMPHS 10 % (21-51); MONO 8 % (1-9); SEGS 68 % (42-75)
[2018-12-28] MEDS: GLUCOPHAGE PO SCH (10:47)
[2018-12-28] MEDS: LOVENOX SUBQ SCH (10:47)
[2018-12-28] MEDS: HYZAAR 50/12.5 MG PO SCH (10:47)
[2018-12-28] MEDS: PERIDEX MT SCH ×2 (10:48→22:50)
[2018-12-28] MEDS: LYRICA PO SCH (10:48)
[2018-12-28 13:20] LABS: URINE SOURCE CATH
[2018-12-28 13:36] LABS: BILIRUBIN URINE NEGATIVE (NEGATIVE); BLOOD URINE SMALL (NEGATIVE); COLOR YELLOW; GLUCOSE URINE TRACE mg/dL (NEGATIVE); KETONE URINE TRACE mg/dL (NEGATIVE); LEUKOCYTES URINE NEGATIVE (NEGATIVE); NITRITE URINE NEGATIVE (NEGATIVE); PH URINE 5.5; PROTEIN URINE 50 mg/dL (NEGATIVE); SP GRAVITY URINE 1.018; TURBIDITY URINE TURBID (CLEAR); UROBILINOGEN URINE NORMAL (NORMAL)
[2018-12-28 13:38] LABS: UR EPITHELIAL CELLS <10 /HPF (<10); URINE BACTERIA NEGATIVE /HPF; URINE RBC TNTC /HPF (<10)
[2018-12-28 13:44] LABS: URINE CASTS NONE SEEN; URINE YEAST PRESENT
--- NOTE | 2018-12-28 16:07 | Diag Imaging Result Doc PS360 ---
EXAM: CT ABDOMEN W/O CONTRAST HISTORY: kidneys/sepsis/infection TECHNIQUE: Emergent CT abdomen without contrast COMPARISON: 12/21/2018 FINDINGS: interval development of a small to moderate-sized right-sided pleural effusion measuring 3.0 cm posteriorly and inferiorly in the midline. There is atelectasis and infiltrates in the right lower lobe. There are postsurgical changes in the abdomen with midline skin [place] and a right upper quadrant drain. No well-defined fluid collection or abscess. There is a small amount of fluid in the right paracolic gutter and about the liver. The spleen is not enlarged. No inflammation about the pancreas. Normal adrenal glands. There is scarring to the right kidney. No renal stones or hydronephrosis. No aortic aneurysm. No bowel obstruction. IMPRESSION: 1.Interval development of a right pleural effusion with basilar atelectasis and infiltrates 2.Postsurgical changes within the abdomen, but no well-defined fluid collection or abscess This exam was performed using automated exposure control, adjustment of mA or kV according to patient size, and/or use of iterative reconstruction technique. Electronically signed by Hossein Jenkins 12/28/2018 4:05 PM
[2018-12-28] MEDS: TYLENOL PO PRN ×2 (16:48→22:53)
[2018-12-28 18:34] LABS: AMYLASE BODY FLUID 66 U/L
--- NOTE | 2018-12-28 22:00 | PROGRESS NOTE ---
DATE: 12/28/2018 SUBJECTIVE: A 68-year-old, white female, admitted to the hospital with perforated viscus last Sunday by Dr. Luna. She was in ICU. She was doing very nicely until yesterday afternoon. She was sitting out of the bed and completely unresponsive, hypoxic, no blood pressure. The patient was seen by Dr. Sesay and Dr. Vernon. Interval history workup was done. This morning, patient was awake, slightly confused. The patient's niece is at bedside. She is eating breakfast and lunch. However, the increasing white cell count, increasing creatinine. Bladder scan reported 140 mL. Craven has been ordered. Waiting to be discussed further about the Living Will and future plans with [id number]. PAST MEDICAL HISTORY: Reviewed. PAST SURGICAL HISTORY: Reviewed. MEDICATIONS: Reviewed. ALLERGIES: Codeine and latex. EXAM: Vital Signs: She is running low-grade fever, pulse 92, blood pressure 103/38 on 2.5 L, 100%. HEENT Exam: She is mentally lucid, able to follow with verbal commands. Chest: Bilateral air entry. Heart: Sounds are regular. Abdomen: Belly is soft and midline scar present. ELIJAH drain still draining. Extremities: Spider veins. No edema noted. LABS: White cell count is going up 19.54, hematocrit 30, platelets 284. Sodium 133, potassium 3.6, BUN 30, creatinine 3.1, glucose 173, CK was high. Plasma lactate level is less than 2. Cultures: Blood cultures pending. ASSESSMENT AND PLAN: 1. Postoperative day 7 perforated duodenal ulcer with Chuck patch. Still ELIJAH drain is draining. 2. Syncope spell, etiology to be determined. 3. Acute kidney injury. Craven was placed. Continue IV fluids. We will get further workup. 4. Acute kidney injury. Creatinine is 3. I am going to discontinue metformin and hypotension. Discontinue losartan. 5. Deep vein thrombosis prophylaxis with Lovenox. 6. Continue IV fluids and perforated viscus with peritonitis. Currently, she is on Zosyn and vancomycin was ordered yesterday. If things will not get better consider Dr. Padilla consult for elevated white cell count and repeat CT scan of the abdomen and pelvis. 7. Apparently yesterday, the patient had altered mental status. CT was negative and also possible pulmonary embolism. Dopplers and ventilation-perfusion scan were negative. We will follow up. LEVEL OF DOCUMENTATION: 35 minutes. cc: MD Shelton Mckinney MD
[2018-12-29] MEDS: NS 1,000 ML IV SCH (03:44)
[2018-12-29] MEDS: NORCO-10 PO PRN ×2 (04:06→15:33)
--- NOTE | 2018-12-29 04:41 | GENERAL SURGERY PROGRESS NOTE ---
DATE: 12/28/2018 SUBJECTIVE: The patient remains in and out of consciousness. She is arousable and will interact. I questioned her and she denied abdominal pain, nausea, vomiting. She did complain of some back pain only. OBJECTIVE: Vital signs: She is afebrile. Vital signs are stable. However, pulse is somewhat elevated over the last 24 hours now, in the 90s to low 100s. Blood pressure 103/38. O2 saturation 100%. General: She is somnolent, but arousable. She does follow commands, but she quickly dozes back off. Cardiovascular: Regular rate and rhythm. Respiratory: Bilateral breath sounds, but decreased in the bases. Gastrointestinal: Soft, mildly tender, nondistended. Incision is clean, dry, and intact. ELIJAH drain has some serous brown drainage. No devonte bile appreciated, although there might be a tinge of bile. LABORATORY: White blood cell count 19,000, hemoglobin 9, hematocrit 30. Electrolytes reviewed, notable for BUN of 30, creatinine 3.1. Urinalysis notable for white blood cells. IMAGING: A V/Q scan yesterday was negative for pulmonary embolus. ASSESSMENT/PLAN: A 58-year-old female with acute delirium and probable pneumonia, status post Chuck patch repair of perforated duodenal ulcer. She is now being covered with the antibiotics Zosyn and vancomycin. I am giving her some gentle hydration. She also has acute kidney injury. We have ordered urine culture and a Craven catheter to be placed, and we have also ordered a CT scan of her abdomen to look for an occult source of sepsis. cc: MD Shelton Woods MD
[2018-12-29] MEDS: HUMALOG SUBQ SCH ×4 (06:43→21:17)
[2018-12-29 07:10] LABS: CALCIUM 7.1 mg/dL (8.8-10.2); CREATININE 4.5 mg/dL (0.5-0.9); POTASSIUM 4.1 mmol/L (3.5-5.1)
[2018-12-29 07:11] LABS: ALB/GLOB RATIO 0.9; ALBUMIN 2.1 g/dL (3.5-5.0); TOTAL BILIRUBIN 0.39 mg/dL (0.20-1.00); TOTAL PROTEIN 4.4 g/dL (6.3-8.3)
[2018-12-29 07:12] LABS: BASO# 0.04 X1000 (0.0-0.2); BASO% 0.2 % (0.0-0.8); EOS# 0.31 X1000 (0.0-0.7); EOS% 1.5 % (0.0-10.0); HEMATOCRIT 28.8 % (37.0-47.0); HEMOGLOBIN 9.1 g/dL (12.0-16.0); IMM GRAN# 0.27 X1000 (0.0-0.04); IMM GRAN% 1.3 % (0.0-0.5); LYMPH# 1.19 X1000 (1.2-3.4); LYMPH% 5.9 % (20.5-51.1); MCH 27.1 PG (27-31); MCHC 31.6 g/dL (33-37); MCV 85.7 FL (81-99); MONO# 1.47 X1000 (0.11-0.59); MONO% 7.3 % (1.7-9.3); MPV 11.4 FL (7.4-10.4); NEUT# 16.85 X1000 (1.4-6.5); NEUT% 83.8 % (42.2-75.2); PLT 306 X1000 (130-400); RBC 3.36 XMIL (4.2-5.4); RDW 16.3 % (11.5-14.5); WBC 20.13 X1000 (4.8-10.8)
--- NOTE | 2018-12-29 07:18 | Diag Imaging Result Doc PS360 ---
EXAM: CHEST-1 VIEW HISTORY: SOB TECHNIQUE: Portable chest single view COMPARISON: 12/27/2018 FINDINGS: Poor inspiratory effort. There is atelectasis and possible underlying infiltrates in the right lung base. There is a small right pleural effusion. The heart is enlarged and there is pulmonary edema. IMPRESSION: Mixed areas of improvement and worsening. Electronically signed by Hossein Jenkins 12/29/2018 7:16 AM
[2018-12-29 08:18] LABS: CK INDEX 1.2 (0.0-2.5); CK-MB 2.66 ng/mL (0.0-5.0)
[2018-12-29] MEDS: PROTONIX PO SCH ×2 (11:11→19:00)
[2018-12-29] MEDS: LOVENOX SUBQ SCH (11:14)
[2018-12-29] MEDS: PERIDEX MT SCH ×2 (11:14→21:17)
[2018-12-29] MEDS: ZOSYN 2.25 GM in NS 50 ML IV SCH ×3 (11:19→23:06)
[2018-12-29 13:37] LABS: UR CREAT RANDOM 65.1 mg/dL (11-20); UR PROT RANDOM 69.2 mg/dL
[2018-12-29] MEDS: SODIUM BICARBONATE 8.4% 150 MEQ in D5W 1,000 ML IV SCH (14:06)
--- NOTE | 2018-12-29 14:20 | GENERAL SURGERY PROGRESS NOTE ---
DATE: 12/29/2018 SUBJECTIVE: She is feeling better. No acute events overnight. She denies abdominal pain, nausea or vomiting. OBJECTIVE: Vital Signs: T max 101.3. Current temperature 99.5. Vital signs are stable. Blood blood pressure is 92/35. Urine output 660 mL. General: She is awake and alert, appears more energetic today. She is oriented x 3. Cardiovascular: Regular rate and rhythm. Respiratory: Bilateral breath sounds decreased in the bases. Gastrointestinal: Soft, nontender, nondistended. Incision is clean, dry and intact. ELIJAH drain nonbilious. LABORATORY: White blood cell count 20,000, hemoglobin 9.1, hematocrit 28. Electrolytes reviewed and unremarkable. The ELIJAH drain amylase is 66. Microbiology urine culture is pending. IMAGING: CT of abdomen and pelvis was reviewed yesterday. There are some postsurgical changes in the abdomen, but no evidence of free air or large volume free fluid. She does have bilateral pleural effusions and basilar infiltrates. ASSESSMENT AND PLAN: A 68-year-old female status post Chuck patch repair of perforated duodenal ulcer. Postoperatively, she has had some delirium, leukocytosis, fever and probable pneumonia. She is on vancomycin and Zosyn. No further surgery recommendations at this time. cc: MD Shelton Woods MD
--- NOTE | 2018-12-29 14:30 | PROGRESS NOTE ---
DATE: 12/29/2018 SUBJECTIVE: The patient is awake, intermittent confusion. Daughter was at bedside. Living will has been discussed. No decision was made. Events noted. CT scan of the abdomen and pelvis noted. Some pleural effusion on the right side and also no intra-abdominal abscess noted. ELIJAH drain was present. Discussed with Dr. Sesay and Craven was placed last night. Urine output was decreased and she is on gentle hydration. Not eating very well. EXAMINATION: Temperature is 98 degrees, pulse rate is 98, blood pressure is 126/48, 3 L nasal cannula 90%. Urine output is decreased. She is awake. She is not in respiratory distress. Decreased breath sounds, right side. Heart sounds are regular. Belly is soft. ELIJAH drain was present. No signs of peritonitis. No peripheral edema. INVESTIGATIONS: CBC: White cell count 20, hematocrit 28, platelets 306,000. Sodium 132, potassium 4.1, BUN 36, creatinine 4.5, glucose 154. Cardiac enzymes were negative. Troponin was negative. ASSESSMENT AND PLAN: 1. Postoperative day eight from perforated viscus with Chuck patch due to duodenal ulcer. Continue on Protonix 40 by mouth twice a day. 2. Elevated white cell count, possible aspiration. Added on intravenous vancomycin and Zosyn. 3. Acute kidney injury due to hypotension and gentle hydration, and Dr. Washington consult. Baseline creatinine 1.2. A Craven was placed. CT did not show any hydronephrosis. She did have partial nephrectomy on the right side for renal cancer. 4. Right pleural effusion. Continue to watch. 5. Deep venous thrombosis prophylaxis with Lovenox. 6. Intravenous fluids, on 100 mL an hour. 7. Living will has been discussed. No decision was made. 8. Daily monitoring of the renal profile and chest x-ray. 9. History of diabetes. I discontinued metformin. Follow up on the sliding scale. 10. Hypotension. Discontinue losartan and we will follow up. LEVEL OF DOCUMENTATION: 25 minutes. cc: MD Shelton Mckinney MD
[2018-12-29] MEDS ORDERED: VANCOMYCIN 1,200 MG in NS 250 ML IV SCH (18:00)
[2018-12-30] MEDS: TYLENOL PO PRN ×4 (00:44→22:58)
[2018-12-30] MEDS: SODIUM BICARBONATE 8.4% 150 MEQ in D5W 1,000 ML IV SCH ×3 (03:14→22:58)
[2018-12-30] MEDS: ZOSYN 2.25 GM in NS 50 ML IV SCH ×4 (05:22→22:58)
[2018-12-30 06:24] LABS: ALBUMIN 1.7 g/dL (3.5-5.0); CALCIUM 7.5 mg/dL (8.8-10.2); CREATININE 5.1 mg/dL (0.5-0.9); PHOSPHORUS 4.8 mg/dL (2.7-4.5); POTASSIUM 3.5 mmol/L (3.5-5.1)
[2018-12-30] MEDS: HUMALOG SUBQ SCH ×4 (06:48→21:43)
[2018-12-30] MEDS: PROTONIX PO SCH ×3 (06:49→20:23)
--- NOTE | 2018-12-30 07:34 | Diag Imaging Result Doc PS360 ---
EXAM: CHEST-1 VIEW HISTORY: SOB TECHNIQUE: Portable chest single view COMPARISON: 12/29/2018 FINDINGS: Poor inspiratory effort. Heart is mildly enlarged and there is pulmonary edema. There is a small right pleural effusion. There may be underlying infiltrates in the right base. The overall appearance is similar to the prior exam. IMPRESSION: No interval improvement. Electronically signed by Hossein Jenkins 12/30/2018 7:32 AM
[2018-12-30] MEDS: PERIDEX MT SCH ×2 (10:42→20:24)
[2018-12-30] MEDS: LOVENOX SUBQ SCH (10:42)
--- NOTE | 2018-12-30 11:46 | GENERAL SURGERY PROGRESS NOTE ---
DATE: 12/30/2018 SUBJECTIVE: From a GI standpoint, she is having bowel function. Her drain is clear. She is tolerating some clear liquids. OBJECTIVE: On exam, she did have a fever of 102.1 last, was afebrile this morning. Pulse 84, blood pressure 130/61. Her abdomen is soft. ELIJAH drain is serosanguineous. The Craven bag has clear urine. Her white count was up to 20 yesterday. Her creatinine has been climbing. It is 5.1. Glucoses are elevated. Urinalysis did show white blood cells. Urine sodium was 46. She had a drain amylase that was 66. Chest x-ray shows right-sided effusions, likely consolidation consistent with pneumonia. She is on vancomycin and Zosyn. The nephrologists have seen her but I do not see the recommendations yet. ASSESSMENT AND PLAN: This is a 68-year-old female with status post duodenal ulcer repair. She seems to have pneumonia and worsening renal dysfunction associated with this. I reviewed her CT scan. On exam, her incision is intact. Her drain is clear with no purulence and no bile. She is on fluids, started by the nephrology service. She is on prophylactic Lovenox. Pending renal function, may need to switch this to subcutaneous heparin. In fact, I will go ahead and do that now. She is on a proton pump inhibitor. I suspect that this is worsening renal function related to pneumonia and a systemic inflammatory response syndrome type picture, although from a respiratory standpoint, she is on minimal oxygen. Follow her closely. cc: MD Shelton Vilchis MD
--- NOTE | 2018-12-30 11:46 | PROGRESS NOTE ---
DATE: 12/30/2018 OBJECTIVE: Vital Signs: Temperature 98.6 degrees, heart rate 86, respirations 18, blood pressure 132/61, O2 saturation on 2 liters nasal oxygen 96%. General: The patient is alert and arousable, but weak. She had an episode on Sunday of loss of consciousness and unresponsiveness. Her mental status has improved since that time on Sunday. IMAGING: CT of her head revealed microvascular changes, but no hemorrhage or lesion. Venous Doppler study revealed no clot. V/Q scan of her lungs revealed no clots. CT of her abdomen showed no evidence of abscess or infection. White blood count yesterday was 20,000. Chest x-ray has shown some fluid in lower lungs suggestive of aspiration pneumonia. There was decreased renal function and urinary obstruction, so a Craven catheter was placed. Labs will be rechecked tomorrow. Blood and urine cultures were negative. She is currently on vancomycin and Zosyn. Labs will be rechecked tomorrow morning. She will need several more days in the hospital before going to rehab. cc: Shelton Vernon MD
[2018-12-30] MEDS ORDERED: HEPARIN SUBQ SCH (13:00)
--- NOTE | 2018-12-30 14:20 | NEPHROLOGY CONSULTATION ---
DATE: 12/30/2018 REASON FOR ADMISSION: Perforated ulcer of the duodenum. REASON FOR CONSULTATION: Acute kidney injury. CONSULTING PHYSICIAN: HISTORY OF PRESENT ILLNESS: This is a 68-year-old female, who came into the hospital on the 18 secondary to abdominal pain. DICTATION ENDS HERE Please see note dictated on 12/30/18 at 1550. AA Dictated by VERA Mensah for Marcello Washington MD cc: MD Shelton Tang MD [facility]
--- NOTE | 2018-12-30 17:14 | NEPHROLOGY CONSULTATION ---
DATE: 12/30/2018 REASON FOR ADMISSION: Perforated ulcer of the duodenum. REASON FOR CONSULTATION: Acute kidney injury. CONSULTING PHYSICIAN: Dr. Vernon. HISTORY OF PRESENT ILLNESS: This is a 68-year-old female who presented to the hospital on December 21 secondary to abdominal pain and 50-pound weight loss. The patient did have a history of renal cell carcinoma in the past as well as breast carcinoma in the past. She has had partial nephrectomy and bilateral mastectomy with implant reconstruction. Other than that diabetes and hypertension are her only other issues. Came into the hospital again with abdominal pain. She was admitted with a perforated ulcer, peritonitis, went to surgery on that same day and initially did well. Subsequently she had developed an episode of hypotension and apparent syncopal episode on the . Also at that time she underwent imaging on the for a V/Q scan with contrast. The patient has also been maintained on antibiotic therapy Zosyn and vancomycin. The patient's creatinine on admission was normal. Over the course of the hospitalization her creatinine held fairly steady up through the . I have no labs from there till the and on that day she had a creatinine of 2.1. Prior was 1.1. Since then her creatinine has risen approximately a half a point to a point per day. The patient's urine output initially had been adequate, also around on the she had a significant decrease in urine output and since then her urine output has been less than a liter per day. The patient today is sitting up in a chair. She is able to answer some questions but she does defer most of the information to her sister. PAST MEDICAL HISTORY: Breast cancer, renal cell cancer, diabetes, hypertension. SURGICAL HISTORY: She has had a laparoscopic sleeve gastrectomy some years ago, partial nephrectomy on the right, bilateral mastectomies with implant reconstruction. ALLERGIES: Adhesive tape, codeine, latex. CURRENT MEDICATIONS: Listed as Tylenol, [place], heparin, Humalog, vancomycin, Protonix, piperacillin tazobactam, sodium bicarbonate. FAMILY HISTORY: Noncontributory. 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 No tobacco, ETOH or illicit drug use. REVIEW OF SYSTEMS: Pertinent positives noted above in HPI. EXAM: Vital Signs: Temperature 98.5 degrees, pulse 81, respiratory rate 18, blood pressure 104/37, intake 3.1 L, output 250 mL. General: This is a middle-aged elderly female sitting up in a chair. She appears awake and alert and some tremors but no acute distress. HEENT: Normocephalic, atraumatic. Conjunctivae are pale. Oral mucosa moist. Neck: Supple without JVD. Cardiovascular: Regular rate and rhythm. Pulmonary: She is on O2 supplementation via nasal cannula and clear bilaterally. Abdomen: Soft, positive bowel sounds with ELIJAH drain. : She has a Craven catheter. Extremities: No clubbing, cyanosis. She has perhaps some trace dependent edema. Integument: Skin is pale, warm and dry. Neuro: She is somewhat nervous but nonfocal. LAB DATA: WBC of 20.1, hemoglobin 9.1, sodium 134, potassium 3.5, CO2 19, creatinine 5.1 (4.5, 3.1), albumin 1.7, calcium 7.5. IMAGING: She did have a CT of the abdomen and pelvis on the , this was without contrast, that particular scan did not show any hydronephrosis. She had scarring to the right kidney. ASSESSMENT PLAN: 1. Acute kidney injury, likely acute tubular necrosis secondary to multiple foci. She has had some hypotensive episodes at the time her creatinine began rising along with contrasted imaging and has been on vancomycin, Zosyn regimen for the majority of hospitalization. The patient does not meet criteria at this time for dialysis however if urine output continues to decline and/or if her other labs develop into critical levels we would need to intervene. I did discuss this with the patient and the sister as a bridge to recovery and they would be in agreement if needed. Check urine studies and labs again in the morning. Thank for the consult. Dictated by VERA Mensah for Marcello Washington MD Face to face encounter, data reviewed, discussed with Harry Panda on 12/30/18. I agree with the above assessment and plan of care. cc: MD Shelton Tang MD [facility]
[2018-12-31 06:10] LABS: BASO# 0.06 X1000 (0.0-0.2); BASO% 0.3 % (0.0-0.8); EOS# 0.33 X1000 (0.0-0.7); EOS% 1.7 % (0.0-10.0); HEMOGLOBIN 8.8 g/dL (12.0-16.0); IMM GRAN# 0.33 X1000 (0.0-0.04); IMM GRAN% 1.7 % (0.0-0.5); LYMPH# 1.15 X1000 (1.2-3.4); MCH 27.1 PG (27-31); MCHC 32.6 g/dL (33-37); MCV 83.1 FL (81-99); MONO# 1.69 X1000 (0.11-0.59); MONO% 8.9 % (1.7-9.3); NEUT# 15.48 X1000 (1.4-6.5); NEUT% 81.4 % (42.2-75.2); PLT 371 X1000 (130-400); RBC 3.25 XMIL (4.2-5.4); RDW 15.7 % (11.5-14.5); WBC 19.04 X1000 (4.8-10.8)
[2018-12-31] MEDS: ZOSYN 2.25 GM in NS 50 ML IV SCH ×3 (06:15→18:25)
[2018-12-31] MEDS: PROTONIX PO SCH ×2 (06:48→18:25)
[2018-12-31] MEDS: HUMALOG SUBQ SCH ×4 (06:49→21:44)
[2018-12-31 07:02] LABS: ALBUMIN 1.9 g/dL (3.5-5.0); CREATININE 5.7 mg/dL (0.5-0.9); PHOSPHORUS 4.4 mg/dL (2.7-4.5); POTASSIUM 3.2 mmol/L (3.5-5.1)
--- NOTE | 2018-12-31 07:29 | Diag Imaging Result Doc PS360 ---
EXAM: CHEST-1 VIEW 12/31/2018 HISTORY: SOB TECHNIQUE: AP portable upright at 0720 COMMENT: There is atelectasis versus pneumonia in both lung bases particularly the right lower and middle lobes. This has not changed appreciably considering differences in inspiration since 12/30/2018. There is apparently pleural effusion on the right. IMPRESSION: Right pleural effusion and bibasilar atelectasis versus pneumonia. Electronically signed by Hussain Weems 12/31/2018 7:27 AM
[2018-12-31 07:59] LABS: CALCIUM 6.7 mg/dL (8.8-10.2)
[2018-12-31] MEDS ORDERED: CALCIUM GLUCONATE 1 GM in NS 50 ML IV ONE (08:08)
--- NOTE | 2018-12-31 08:08 | PROGRESS NOTE ---
DATE: 12/31/2018 VITAL SIGNS: Temperature 98.4 degrees, heart rate 79, respirations 16, blood pressure 135/48, O2 saturation on room air 99%. I/O 450 mL, increased. DATA: Chest x-ray shows right pleural effusion and bibasilar atelectasis versus pneumonia. Laboratory shows sodium 131, potassium 3.2, BUN 44, creatinine 5.7, glucose 152, albumin 1.9. White blood count 19,000, hemoglobin 8.8, hematocrit 27.0. OBJECTIVE: Patient is more alert and back to the usual mental status. BUN and creatinine are about the same, but urine output is a little better. She has no ankle edema. Abdomen is soft. Wound looks good according to Dr. Luna. PLAN: Continue intravenous antibiotics. P.o. potassium is added. cc: Shelton Vernon MD
[2018-12-31] MEDS: HEPARIN SUBQ SCH ×2 (08:54→18:25)
[2018-12-31] MEDS: PERIDEX MT SCH ×2 (08:54→21:43)
[2018-12-31] MEDS: TYLENOL PO PRN ×2 (08:55→19:52)
[2018-12-31] MEDS ORDERED: KLOR-CON PO SCH (09:00)
--- NOTE | 2018-12-31 14:19 | NEPHROLOGY PROGRESS NOTE ---
DATE: 12/31/2018 Date Seen: 12/01/2018. Time Seen: 7:05. SUBJECTIVE: Ms. Santos is resting quietly in bed. She states that she is feeling well. She is trying to increase her p.o. intake to help with her urine output. OBJECTIVE: Her most recent vital signs: Temperature 98.4 degrees, blood pressure 135/48, heart rate 79, respirations 16. She is on room air. Last recorded saturation 99%. She has had 2368 in. She has had 450 mL out to Craven catheter. LABS: Sodium is 131, potassium 3.2, chloride 91, CO2 23, BUN 44, creatinine 5.7, glucose is 152. Her anion gap is 17 calcium 6.7, albumin 1.9, with a corrected calcium of 8.38 per calcium for hypoalbuminemia. Her white count is 19, hemoglobin 8.8, hematocrit 27, platelet count 371,000. Chest x-ray shows right pleural effusion with basilar atelectasis versus pneumonia. PHYSICAL EXAMINATION: General: This is a 68-year-old white female. She is resting quietly in a chair. Head of the bed is elevated. She has no acute distress. Skin: Warm and dry. HEENT: Normocephalic, atraumatic. Conjunctiva is pale pink. She has PERRL. Mucous membranes are dry. Neck: Supple. Trachea midline. She has trace JVD in the upright position. Cardiovascular: She is regular rate and rhythm. She has a systolic murmur. Lungs: Clear to auscultation bilaterally, equal excursion on room air. Abdomen: Soft, nontender. Positive bowel sounds. Genitourinary: Not inspected. Patient has Craven catheter with adequate amount documented out. Extremities: She does have trace edema. No clubbing or cyanosis. Integumentary: Skin is pale warm and dry. Neurological: She is alert and oriented x3. ASSESSMENT AND PLAN: 1. Acute kidney injury, more than likely acute tubular necrosis secondary to multiple causes, hypotensive episode with elevated creatinine associated with contrast imaging and vancomycin. We have discussed temporary hemodialysis during her hospital stay until recovery. At this time she does not meet dialysis criteria. We will continue to monitor and follow. 2. Electrolytes and acid-base balance. The patient has met goal for her metabolic acidosis. We will stop her IV fluids and bicarb. We will monitor her electrolytes in the a.m. 3. Electrolytes. Patient has hyponatremia and hypokalemia again. We will stop her IV fluids. We will re-evaluate her labs after potassium replacement today. 4. Hypocalcemia. Again her corrected calcium is 8.38. It appears that she has already had some calcium gluconate ordered along with potassium. 5. Anemia. This remains low but stable. 6. Hypotension. This has resolved. I would like to thank you for allowing us to follow with this patient. Dictated by VERA Cole for Marcello Washington MD Face to face encounter, data reviewed, discussed with Letty Villegas on 12/31/18. I agree with the above assessment and plan of care. cc: VERA Cole MD Robert Allen, MD [facility]
--- NOTE | 2018-12-31 14:38 | GENERAL SURGERY PROGRESS NOTE ---
DATE: 12/31/2018 SUBJECTIVE: Overall feels okay. She has been weaned off of nasal cannula for the most part. No fevers. No tachycardia. OBJECTIVE: Vital signs: Blood pressure 120/48. Abdomen: Soft. Incision intact. ELIJAH drain serosanguineous. Lungs: No increased work of breathing. LABORATORY AND DIAGNOSTIC DATA: White count is down to 19, hematocrit is 27. Creatinine is up to 5.7, potassium is 3.2, glucose 150s. Albumin is low at 1.9. I reviewed her x-ray, shows persistent consolidation and effusion on the right. I have also reviewed Dr. Washington's note, feels this is ATN-related. She has been treated for hospital- acquired pneumonia. She seemed more alert today. ASSESSMENT AND PLAN: This is a 68-year-old female status post repair of perforated duodenal ulcer. She has had acute renal failure as well as pneumonia. I think from an abdominal standpoint, this seems to be progressing. I do worry about her nutrition, but I am apprehensive to start peripheral nutrition, and hopefully we can encourage her p.o. and nutritional supplementation in the setting of her acute renal dysfunction. Otherwise, she is on antibiotics for hospital-acquired pneumonia. I have discussed this with both the niece and her sister. We will continue to monitor her closely going forward. cc: MD Shelton Vilchis MD
[2019-01-01] MEDS: ZOSYN 2.25 GM in NS 50 ML IV SCH ×7 (01:17→23:30)
[2019-01-01] MEDS: HEPARIN SUBQ SCH ×3 (01:17→17:13)
[2019-01-01] MEDS: PROTONIX PO SCH ×4 (05:46→19:33)
[2019-01-01 07:10] LABS: ALBUMIN 1.8 g/dL (3.5-5.0); PHOSPHORUS 4.9 mg/dL (2.7-4.5); POTASSIUM 3.4 mmol/L (3.5-5.1)
[2019-01-01] MEDS: HUMALOG SUBQ SCH ×4 (07:34→22:18)
[2019-01-01 07:40] LABS: CALCIUM 7.1 mg/dL (8.8-10.2)
[2019-01-01] MEDS: ALBUMIN 25% IV SCH (09:45)
[2019-01-01] MEDS: PERIDEX MT SCH ×2 (09:46→22:00)
--- NOTE | 2019-01-01 09:52 | NEPHROLOGY PROGRESS NOTE ---
DATE: 01/01/2019 SUBJECTIVE: She is lying in bed. Some anorexia, and intake has been somewhat low. No BM. No shortness of breath. OBJECTIVE: Vital Signs: Blood pressure 137/85, heart rate 92, respirations 14, afebrile. Urine output 1 L. General: On physical examination, no acute distress. Skin: Warm and dry. Eyes: Conjunctivae are pink. Neck: Neck vein distention is present with hepatojugular reflux. Heart: Regular. Lungs: Equal. A few scattered crackles. Abdomen: Soft, nontender. Bowel sounds present. Extremities: Have trace to 1+ edema. No clubbing or cyanosis. IMPRESSION: Acute kidney injury. BUN and creatinine continue to rise, but her urine output is improved. She does not meet any absolute indications for dialysis. So, we will continue to hold today. We will administer albumin 50 g daily for 3 days. cc: MD Shelton Tang MD
[2019-01-01] MEDS: TYLENOL PO PRN (09:55)
--- NOTE | 2019-01-01 09:57 | PROGRESS NOTE ---
DATE: 01/01/2019 VITAL SIGNS: Temperature 98.8 degrees, heart rate 92, respirations 14, blood pressure 137/85 and O2 saturation on room air 95%. LABORATORY: Sodium 134, potassium 3.4, BUN 48, creatinine 6.0, calcium 7.1, phosphorus 4.9, and albumin 1.8. SUBJECTIVE: The patient is arousable but weak. She continues to eat poorly. Chest is clear except for mildly decreased breath sounds at the lung bases. There is concern about her renal function. Hopefully, there will be some improvement in a couple of days. If not, she may require dialysis. PLAN: Continue intravenous antibiotics. Recheck CBC tomorrow morning. cc: Shelton Vernon MD
[2019-01-01] MEDS ORDERED: NS 500 ML ONE (10:01)
[2019-01-01] MEDS ORDERED: ZOFRAN IV PRN (16:28)
[2019-01-01] MEDS ORDERED: XANAX PO ONE (17:21)
[2019-01-01] MEDS ORDERED: XANAX PO PRN (17:21)
[2019-01-01] MEDS ORDERED: VANCOMYCIN 1,200 MG in NS 250 ML IV SCH (18:00)
[2019-01-01] MEDS ORDERED: VANCOMYCIN 1 GM/NS 1 GM/250 ML IVPB IV SCH (18:00)
--- NOTE | 2019-01-01 21:09 | GENERAL SURGERY PROGRESS NOTE ---
DATE: 01/01/2019 SUBJECTIVE: Intermittent confusion. She is on 2 L nasal cannula. Her abdomen is soft. Her bowels are functioning. She is tolerating some p.o., although not much appetite. Urine output continues to increase, but her creatinine is rising. Dr. Washington has seen her and is observing for now. He is resuscitating with albumin. OBJECTIVE/EXAM: Vital Signs: She is afebrile. No tachycardia. Oxygen saturation low 90s on 2 L. General: She is alert. Abdomen: Soft. Drains remained serosanguineous. LABORATORY DATA: Creatinine is 6.0 today, maybe starting to level off. Potassium is 3.4, glucose 158. ASSESSMENT AND PLAN: This is a 68-year-old female status post repair of a duodenal ulcer. She is unfortunately developed pneumonia and acute kidney injury. We are watching this closely. She is nonoliguric. Electrolytes are reasonable at this juncture. Continue to follow her. May ultimately require dialysis. Referred to Dr. Washington. Meanwhile she is on antibiotics for pneumonia, but from the intra-abdominal standpoint, it would be reasonable to stop. We will continue nutritional supplementation. cc: MD Shelton Vilchis MD
[2019-01-02] MEDS: HEPARIN SUBQ SCH ×3 (02:59→18:16)
[2019-01-02] MEDS: PROTONIX PO SCH ×3 (05:12→18:16)
[2019-01-02] MEDS: ZOSYN 2.25 GM in NS 50 ML IV SCH ×4 (05:18→23:47)
[2019-01-02 06:34] LABS: BASO# 0.07 X1000 (0.0-0.2); BASO% 0.5 % (0.0-0.8); EOS# 0.24 X1000 (0.0-0.7); EOS% 1.6 % (0.0-10.0); HEMATOCRIT 22.4 % (37.0-47.0); HEMOGLOBIN 7.3 g/dL (12.0-16.0); LYMPH# 1.24 X1000 (1.2-3.4); LYMPH% 8.4 % (20.5-51.1); MCH 26.7 PG (27-31); MCHC 32.6 g/dL (33-37); MCV 82.1 FL (81-99); MONO# 1.42 X1000 (0.11-0.59); MONO% 9.7 % (1.7-9.3); MPV 10.6 FL (7.4-10.4); NEUT# 11.42 X1000 (1.4-6.5); NEUT% 77.8 % (42.2-75.2); PLT 404 X1000 (130-400); RBC 2.73 XMIL (4.2-5.4); RDW 15.2 % (11.5-14.5); WBC 14.69 X1000 (4.8-10.8)
[2019-01-02] MEDS: HUMALOG SUBQ SCH ×4 (06:50→22:05)
[2019-01-02 07:35] LABS: EOS 1 % (1-10); LYMPHS 11 % (21-51); MONO 7 % (1-9); SEGS 81 % (42-75)
--- NOTE | 2019-01-02 08:33 | PROGRESS NOTE ---
DATE: 01/02/2019 VITAL SIGNS: stable with temperature 98.2 degrees, heart rate 89, respirations 16, blood pressure 158/56, O2 saturation on room air 100%. LABORATORY: Hemoglobin 7.3, hematocrit 22.4, white blood count 14,700. Sugar was 130. Remainder of BMP is pending. OBJECTIVE: General: She is somnolent, but arousable. Chest: Chest is clear. INTAKE AND OUTPUT: Revealed good urine output yesterday, over 1 L. PLAN: Transfuse 2 units of packed red blood cells. cc: Shelton Vernon MD
[2019-01-02 08:50] LABS: ALBUMIN 2.6 g/dL (3.5-5.0); CALCIUM 7.1 mg/dL (8.8-10.2); PHOSPHORUS 5.1 mg/dL (2.7-4.5); POTASSIUM 3.1 mmol/L (3.5-5.1)
[2019-01-02 08:54] LABS: CREATININE 5.6 mg/dL (0.5-0.9)
[2019-01-02] MEDS: PERIDEX MT SCH ×2 (10:02→22:07)
[2019-01-02] MEDS: KLOR-CON PO SCH ×2 (10:02→22:07)
[2019-01-02] MEDS: ALBUMIN 25% IV SCH (12:17)
--- NOTE | 2019-01-02 13:43 | NEPHROLOGY PROGRESS NOTE ---
DATE: 01/02/2019 TIME SEEN: 0655. SUBJECTIVE: Ms. Santos is sleeping heavily. She does awaken after contact with tactile stimuli. She denies any specific pains or increased work of breathing. OBJECTIVE: Her most recent vital signs, her last temperature 98.2, blood pressure 158/56, heart rate 89, respirations 16. She is on 2 L nasal cannula. Last recorded saturation 100%. She has had 0 recorded in. She has had 1880 out. Laboratory Data: Sodium 134, potassium 3.1, chloride is 92, CO2 24, BUN 50, creatinine 5.6, glucose is 133, anion gap 18, calcium 7.1, phosphorus 5.1, albumin 2.6. White count 14.63, hemoglobin 7.3, hematocrit 22.4, with a platelet count of 404,000. The patient has a random vancomycin level of 13.4. Her blood cultures are negative. Physical Examination: General: This is a 68-year-old, white female, resting quietly in bed. She is in no acute distress. Her skin is warm and dry. HEENT: Normocephalic, atraumatic. Conjunctivae are pale pink. She has AAYUSH. Mucous membranes are dry. Neck: Supple. Trachea midline. No JVD upon inspection. Cardiovascular: She is regular rate and rhythm. No murmur or gallop appreciated. Lungs: Clear to auscultation bilaterally. Equal excursion, on O2. Abdomen: Soft, round, nontender. Positive bowel sounds. Genitourinary: Not inspected. Craven catheter remains in place with a large amount of urine documented out. Extremities: Have trace edema. No clubbing or cyanosis. Neurological: Alert and oriented x3. Integumentary: Skin is warm and dry. ASSESSMENT AND PLAN: 1. Acute kidney injury. BUN and creatinine have slightly improved today. She has had adequate urine output. No indications for dialysis. We will continue to monitor and hold on dialysis. 2. Electrolytes and acid-base balance. Patient has mild hypokalemia. We will order supplementation if not already done so and recheck labs in the morning. 3. Acid-base balance. This is stable. 4. Anemia. Her hemoglobin has continued to drop. We will defer to the primary care team to determine if and when she requires transfusion. 5. Possible non-ST elevation myocardial infarction. This is followed by the primary care. I would like to thank you for allowing us to follow with this patient. Dictated by VERA Cole for Marcello Washington MD Face to face encounter, data reviewed, discussed with Letty Villegas on 01/02/19. I agree with the above assessment and plan of care. cc: VERA Cole MD Robert Allen, MD [facility]
--- NOTE | 2019-01-02 22:32 | GENERAL SURGERY PROGRESS NOTE ---
DATE: 01/02/2019 SUBJECTIVE: Clinically, she is about the same. She seems more alert. She is eating dinner. Her drain remains serosanguineous. PHYSICAL EXAMINATION: Abdomen is soft. Incision intact. LABORATORY DATA: White count down is to 14, hematocrit is 22 today. Creatinine is down to 5.6 which is the 1st drop over the last week or so, potassium 3.1, glucose 133, CO2 of 27. ASSESSMENT AND PLAN: This is a 68-year-old female status post perforated duodenal ulcer repair. She has had pneumonia and acute kidney injury. This all seems to be improving clinically. No indication for dialysis. She is on antibiotics for pneumonia, and overall clinically, she is gradually improving. She does have some degree of malnourishment. Although her oral intake is improving, she is quite debilitated. We will continue current management. cc: MD Shelton Vilchis MD
[2019-01-03] MEDS: HEPARIN SUBQ SCH ×4 (03:07→18:13)
[2019-01-03] MEDS: PROTONIX PO SCH ×4 (05:14→18:14)
[2019-01-03] MEDS: ZOSYN 2.25 GM in NS 50 ML IV SCH ×4 (05:14→23:34)
[2019-01-03 06:42] LABS: BASO# 0.06 X1000 (0.0-0.2); BASO% 0.4 % (0.0-0.8); EOS# 0.29 X1000 (0.0-0.7); EOS% 1.7 % (0.0-10.0); HEMATOCRIT 33.1 % (37.0-47.0); HEMOGLOBIN 10.9 g/dL (12.0-16.0); IMM GRAN# 0.34 X1000 (0.0-0.04); LYMPH# 1.64 X1000 (1.2-3.4); LYMPH% 9.8 % (20.5-51.1); MCH 27.7 PG (27-31); MCHC 32.9 g/dL (33-37); MONO# 1.67 X1000 (0.11-0.59); MPV 11.2 FL (7.4-10.4); NEUT# 12.68 X1000 (1.4-6.5); NEUT% 76.1 % (42.2-75.2); PLT 412 X1000 (130-400); RBC 3.94 XMIL (4.2-5.4); RDW 15.7 % (11.5-14.5); WBC 16.68 X1000 (4.8-10.8)
[2019-01-03 06:50] LABS: ALBUMIN 2.9 g/dL (3.5-5.0); CALCIUM 7.4 mg/dL (8.8-10.2); PHOSPHORUS 4.6 mg/dL (2.7-4.5); POTASSIUM 3.3 mmol/L (3.5-5.1)
[2019-01-03 06:55] LABS: CREATININE 5.6 mg/dL (0.5-0.9)
[2019-01-03] MEDS: HUMALOG SUBQ SCH ×5 (07:23→21:19)
--- NOTE | 2019-01-03 07:24 | Diag Imaging Result Doc PS360 ---
EXAM: CHEST-1 VIEW 01/03/2019 HISTORY: pneumonia TECHNIQUE: AP portable at 0614 COMMENT: There is pleural fluid on the right. There is ill-defined opacity in both lower lung lim particularly on the right. There is some apparent atelectasis in the left lower lobe. Compared to 01/01/2019 opacification of the right lower lobe and middle lobe is slightly worse. IMPRESSION: Right pleural effusion. Pulmonary edema plus minus pneumonia with bibasilar atelectasis. Electronically signed by Hussain Weems 01/03/2019 7:22 AM
[2019-01-03] MEDS: DUONEB (A & A) INH SCH ×3 (09:42→21:53)
--- NOTE | 2019-01-03 09:47 | PROGRESS NOTE ---
DATE: 01/03/2019 VITAL SIGNS: Stable with temperature 98.3 degrees, heart rate 89, respirations 18, blood pressure 155/65, and O2 saturation on nasal oxygen 99%. LABORATORY: Hemoglobin 10.9, hematocrit 33.1, and white blood count 663[address]. Sodium 140, potassium 3.3, BUN 49, creatinine 5.6, glucose 156, and albumin 2.9. OBJECTIVE: The patient is alert and clinically slowly improving. Chest x-ray shows persistent infiltrates, worse on the right. Abdomen soft. There is no ankle edema. PLAN: Add nebulizer treatments with albuterol and Atrovent. Continue intravenous antibiotics. Add diltiazem for blood pressure. Continue increased activity and ambulation. Hopefully, she will improve to the point of being able to go to rehab next week. cc: Shelton Vernon MD
[2019-01-03] MEDS: PERIDEX MT SCH ×2 (11:05→21:20)
[2019-01-03] MEDS: CARDIZEM CD PO SCH (11:06)
[2019-01-03] MEDS: ALBUMIN 25% IV SCH (11:10)
--- NOTE | 2019-01-03 17:01 | NEPHROLOGY PROGRESS NOTE ---
DATE: 01/03/2019 SUBJECTIVE: She is about to get up and work with therapy. She states she feels well today. No shortness of breath, nausea or vomiting. OBJECTIVE: Vital Signs: Blood pressure 155/65, heart rate 72, respirations 20, afebrile. Intake 1.4 L. Output 2.2 L. PHYSICAL EXAMINATION: General: No acute distress. Skin: Warm and dry. HEENT: Conjunctivae are pink. Neck: Neck veins are not appreciated. Heart: Regular. Lungs: Equal. No crackles. Abdomen: Soft, nontender. Bowel sounds present. Extremities: With 1+ edema. No clubbing or cyanosis. IMPRESSION: Acute kidney injury. Acute tubular necrosis. Her labs have plateaued over the last 48 to 72 hours. She does not meet criteria for dialysis today. She needs to continue to hydrate. Otherwise, no change in therapy today. cc: MD Shelton Tang MD
--- NOTE | 2019-01-03 21:31 | GENERAL SURGERY PROGRESS NOTE ---
DATE: 01/03/2019 SUBJECTIVE: Doing okay. No events overnight. She is more alert. She has been ambulating, tolerating diet. Her bowels are functioning. Urine output continues to improve. No fevers. No tachycardia. LABS: I reviewed her labs. Creatinine is down to stable at 5.6, glucose 150s to 240s, potassium 3.3. ASSESSMENT AND PLAN: A 68-year-old female status post perforated duodenal ulcer repair. She has pneumonia. She had acute kidney injury. All this seems to be slowly improving. She is quite debilitated, special need rehab. Did discuss this. Otherwise, we will continue p.o. intake as tolerated. cc: MD Shelton Vilchis MD [facility]
[2019-01-04] MEDS: DUONEB (A & A) INH SCH ×4 (03:05→21:00)
[2019-01-04] MEDS: ZOSYN 2.25 GM in NS 50 ML IV SCH ×4 (04:47→23:09)
[2019-01-04] MEDS: HEPARIN SUBQ SCH ×3 (04:49→21:00)
[2019-01-04] MEDS: PROTONIX PO SCH ×4 (05:53→19:00)
[2019-01-04] MEDS: HUMALOG SUBQ SCH ×4 (06:50→23:09)
[2019-01-04 09:04] LABS: HEMATOCRIT 32.3 % (37.0-47.0); HEMOGLOBIN 10.5 g/dL (12.0-16.0); MCH 27.7 PG (27-31); MCHC 32.5 g/dL (33-37); MCV 85.2 FL (81-99); MPV 10.9 FL (7.4-10.4); RBC 3.79 XMIL (4.2-5.4); WBC 15.11 X1000 (4.8-10.8)
[2019-01-04 09:29] LABS: ALBUMIN 2.7 g/dL (3.5-5.0); CREATININE 4.8 mg/dL (0.5-0.9); PHOSPHORUS 4.1 mg/dL (2.7-4.5); POTASSIUM 3.3 mmol/L (3.5-5.1)
[2019-01-04] MEDS: CARDIZEM CD PO SCH (11:03)
[2019-01-04] MEDS: TYLENOL PO PRN ×2 (11:03→21:00)
[2019-01-04] MEDS: PERIDEX MT SCH ×2 (11:03→21:00)
--- NOTE | 2019-01-04 11:09 | PROGRESS NOTE ---
DATE: 01/04/2019 SUBJECTIVE: The patient says she is feeling better. She is ready to go to the [facility] in float on a boat. I suggested she might want to wait just a little while before going, but she does seem to be in good spirits. OBJECTIVE: Vital signs: Blood pressure is 135/57, respirations 18, pulse 20, temperature 99.7 degrees Fahrenheit. HEENT: She is normocephalic. EOMS intact. PERRLA. Throat clear. Lungs: Sound clear to auscultation. Heart: Regular rate and rhythm without murmurs, gallops, or friction rubs. Abdomen: Soft. Active bowel sounds. No organomegaly or tenderness. Neurologic: Intact grossly. LABORATORY DATA: Shows white count 00979, hemoglobin 10.5, hematocrit 32.3. Chemistry profile is not back yet. Yesterday her creatinine was 5.6, her potassium was a little low at 3.3. ASSESSMENT: 1. Status post surgery for a perforated ulcer. 2. Acute kidney failure with a creatinine of 5.6 yesterday. 3. Pneumonia. 4. Hypokalemia. PLAN: Continue current regimen. cc: MD Shelton Carroll Jr, MD
--- NOTE | 2019-01-04 21:36 | GENERAL SURGERY PROGRESS NOTE ---
DATE: 01/04/2019 She is now about 2-1/2 weeks after repair of a perforated duodenal ulcer. She is gradually improving. T-max is 99.7, now 99.1, heart rate 86, blood pressure 135/48. She is awake and alert. She said she ate much better today. Her drain is really not putting out anything. The plan will be therefore to remove the drain, and I think we can remove her [place]. cc: MD Shelton Shelby MD
--- NOTE | 2019-01-04 22:26 | NEPHROLOGY PROGRESS NOTE ---
DATE: 01/04/2019 SUBJECTIVE: She is resting in bed. She states she has been up with therapy twice today. Eating well. No nausea or shortness of breath. OBJECTIVE: Vital Signs: Blood pressure 164/69, heart rate 98, respiration 19, temperature 99.9. Intake 800 mL. Output 2.2 L. General: No acute distress. Skin: Warm and dry. Neck: Neck veins are not appreciated. Heart: Regular. No gallops. Lungs: Equal. No crackles. Abdomen: Soft, nontender. Bowel sounds are present. Extremities: No edema, clubbing or cyanosis. IMPRESSION: 1. Acute kidney injury. 2. Acute tubular necrosis. Creatinine improved from 5.6 to 4.8 today. Excellent urine output. Unlikely to require dialysis. No change in therapy. cc: MD Shelton Tang MD
[2019-01-05] MEDS: DUONEB (A & A) INH SCH ×4 (02:40→21:00)
[2019-01-05] MEDS: ZOSYN 2.25 GM in NS 50 ML IV SCH ×4 (04:49→23:29)
[2019-01-05] MEDS: HEPARIN SUBQ SCH ×3 (04:49→21:34)
[2019-01-05] MEDS: PROTONIX PO SCH ×2 (06:01→18:33)
[2019-01-05 06:31] LABS: HEMATOCRIT 31.6 % (37.0-47.0); HEMOGLOBIN 10.1 g/dL (12.0-16.0); MCH 27.8 PG (27-31); MCV 87.1 FL (81-99); MPV 11.1 FL (7.4-10.4); RBC 3.63 XMIL (4.2-5.4); RDW 16.2 % (11.5-14.5); WBC 14.44 X1000 (4.8-10.8)
[2019-01-05] MEDS: HUMALOG SUBQ SCH ×4 (06:45→21:45)
[2019-01-05 06:55] LABS: ALBUMIN 2.6 g/dL (3.5-5.0); CALCIUM 8.1 mg/dL (8.8-10.2); CREATININE 4.5 mg/dL (0.5-0.9); PHOSPHORUS 4.2 mg/dL (2.7-4.5); POTASSIUM 3.4 mmol/L (3.5-5.1)
[2019-01-05] MEDS: TYLENOL PO PRN ×2 (08:16→22:16)
[2019-01-05] MEDS: PERIDEX MT SCH ×2 (08:17→21:34)
[2019-01-05] MEDS: CARDIZEM CD PO SCH (08:17)
--- NOTE | 2019-01-05 09:39 | GENERAL SURGERY PROGRESS NOTE ---
DATE: 01/05/2019 Ms. Santos is doing better. She is afebrile. Hemodynamics are satisfactory. She has eaten some breakfast. Her wound is fine. White count today is 14,000. Chemistry is about the same. ASSESSMENT AND PLAN: No new recommendations today. She should be getting closer to discharge from the surgical perspective. cc: MD Shelton Shelby MD
--- NOTE | 2019-01-05 12:53 | PROGRESS NOTE ---
DATE: 01/05/2019 SUBJECTIVE: The patient says she feels better. She says she is a little short of breath, but it is just minor. She has been watching [place] of [place] from her bed on a device. OBJECTIVE: Vital Signs: Show blood pressure 145/60, respirations 20, pulse 85, temperature 98.2 degrees Fahrenheit. HEENT: She is normocephalic. EOMS intact. PERRLA. Throat clear. Lungs: Clear to auscultation and percussion without rhonchi, rales, or wheezes. Heart: Regular rate and rhythm without murmurs, gallops or friction rubs. Abdomen: Slight tenderness for which she has had her surgery. Neurological: Exam is intact grossly. Potassium is 3.4. Creatinine is down to 4.5, BUN 46. White count is 14,440. Hemoglobin is 10.5, hematocrit is 31.6. ASSESSMENT: 1. Perforated duodenal ulcer. 2. Anemia. 3. Acute kidney injury. 4. Mild hypokalemia. PLAN: Continue treatment. cc: MD Shelton Carroll Jr, MD
[2019-01-05] MEDS ORDERED: VANCOMYCIN 1 GM/NS 1 GM/250 ML IVPB IV SCH (19:30)
[2019-01-06] MEDS: DUONEB (A & A) INH SCH ×4 (03:00→20:06)
[2019-01-06] MEDS: HEPARIN SUBQ SCH ×3 (04:21→21:41)
[2019-01-06] MEDS: ZOSYN 2.25 GM in NS 50 ML IV SCH ×4 (04:21→23:10)
[2019-01-06 05:56] LABS: HEMATOCRIT 31.2 % (37.0-47.0); MCH 27.8 PG (27-31); MCHC 32.1 g/dL (33-37); MCV 86.7 FL (81-99); MPV 11.1 FL (7.4-10.4); RBC 3.6 XMIL (4.2-5.4); WBC 15.85 X1000 (4.8-10.8)
[2019-01-06] MEDS: HUMALOG SUBQ SCH ×4 (06:16→21:42)
[2019-01-06 06:21] LABS: ALBUMIN 2.6 g/dL (3.5-5.0); CALCIUM 8.2 mg/dL (8.8-10.2); CREATININE 4.2 mg/dL (0.5-0.9); PHOSPHORUS 4.2 mg/dL (2.7-4.5); POTASSIUM 3.8 mmol/L (3.5-5.1)
[2019-01-06] MEDS: PROTONIX PO SCH ×3 (06:32→18:18)
--- NOTE | 2019-01-06 08:19 | PROGRESS NOTE ---
DATE: 01/06/2019 VITAL SIGNS: Temperature 98.3 degrees, heart rate 85, respirations 18, blood pressure 162/68, O2 saturation on room air 97%. LABORATORY: Hemoglobin 10.0, hematocrit 31.2, white blood count 15,800. Sodium 143, potassium 3.8, BUN 46, creatinine 4.2, glucose 126, albumin 2.6. The patient continues to slowly improve. She is a little dyspneic and tachypneic after using a walker to go to the bathroom. She still needs assistance even with the walker and a person to ambulate. PLAN: Discontinue Craven and see if she is able to urinate. There is a possibility of transfer to rehab tomorrow. Chest x-ray will be repeated tomorrow morning. cc: Shelton Vernon MD
[2019-01-06] MEDS: TYLENOL PO PRN ×2 (09:18→16:22)
[2019-01-06] MEDS: PERIDEX MT SCH ×2 (09:18→21:41)
[2019-01-06] MEDS: CARDIZEM CD PO SCH (09:18)
--- NOTE | 2019-01-06 16:58 | GENERAL SURGERY PROGRESS NOTE ---
DATE: 01/06/2019 SUBJECTIVE: Doing okay. No fevers. No tachycardia. OBJECTIVE: Vital Signs: Blood pressure 133/56, oxygen 95%. Abdomen: Her abdomen is soft. Her incision is healing. Genoveva have been removed. LABORATORY DATA: White count 15, hematocrit 31. Creatinine is down to 4.2, glucose 126/206. I have reviewed her medications and her orders. She is on Zosyn and vancomycin, both of which have been renally adjusted. She is on PP. And she is on subcutaneous heparin as well as other appropriate medications. ASSESSMENT AND PLAN: A 68-year-old female status post repair of duodenal ulcer. She has also developed pneumonia and acute kidney injury. Overall, she is clinically much improved. I think the plan is for her to go to rehab soon. Surgically I think this is reasonable. We will continue to follow her going forward. cc: MD Shelton Vilchis MD
--- NOTE | 2019-01-06 18:30 | NEPHROLOGY PROGRESS NOTE ---
DATE: 01/06/2019 SUBJECTIVE: Patient resting in bed. States that she has walked up and down the henley with physical therapy and has been able to void. OBJECTIVE: Vital Signs: Temperature 98.3 degrees, pulse 85, respiratory rate 18, blood pressure 162/88. Intake 1.7 L. Output 2 L. General: Elderly female, resting in bed, awake and alert, in no acute distress. HEENT: Normocephalic, atraumatic. Oral mucosa moist. Neck: Supple. There is no JVD. Cardiovascular: Regular rate and rhythm without murmur or gallop. Pulmonary: She is clear bilaterally. Equal excursion. Abdomen: Soft. Positive bowel sounds. : Voiding. Extremities: No clubbing, cyanosis. She has perhaps trace edema. Integumentary: Skin is pale, warm, and dry. LAB DATA: WBC of 15.8, hemoglobin 10.0. Sodium 143, potassium 3.8, CO2 26, BUN 46, creatinine 4.2. ASSESSMENT AND PLAN: Acute kidney injury, acute tubular necrosis. Her creatinine has continued to improve over the course of the hospitalization. We will make no changes to her current treatment plan. If the patient is discharged to rehabilitation, we would see her within 2 to 3 weeks after discharge with labs in the interim. Dictated by VERA Mensah for Marcello Washington MD Face to face encounter, data reviewed, discussed with Harry Panda on 01/06/19. I agree with the above assessment and plan of care. cc: MD Shelton Tang MD [facility]
[2019-01-06] MEDS: NORCO-10 PO PRN (23:10)
[2019-01-07] MEDS: DUONEB (A & A) INH SCH ×4 (03:49→21:50)
[2019-01-07] MEDS: HEPARIN SUBQ SCH ×3 (04:45→21:19)
[2019-01-07] MEDS: ZOSYN 2.25 GM in NS 50 ML IV SCH (04:45)
[2019-01-07] MEDS: PROTONIX PO SCH ×3 (05:26→18:00)
[2019-01-07 05:44] LABS: HEMATOCRIT 33.8 % (37.0-47.0); HEMOGLOBIN 10.7 g/dL (12.0-16.0); MCH 28.2 PG (27-31); MCHC 31.7 g/dL (33-37); MCV 88.9 FL (81-99); MPV 10.9 FL (7.4-10.4); RBC 3.8 XMIL (4.2-5.4); RDW 16.5 % (11.5-14.5); WBC 14.1 X1000 (4.8-10.8)
[2019-01-07 06:12] LABS: ALBUMIN 2.5 g/dL (3.5-5.0); CALCIUM 8.2 mg/dL (8.8-10.2); CREATININE 3.7 mg/dL (0.5-0.9); PHOSPHORUS 4.1 mg/dL (2.7-4.5); POTASSIUM 3.6 mmol/L (3.5-5.1)
--- NOTE | 2019-01-07 06:48 | Diag Imaging Result Doc PS360 ---
EXAM: CHEST-1 VIEW HISTORY: pneumonia TECHNIQUE: Chest single view COMPARISON: 01/03/2019 FINDINGS: Poor inspiratory effort. There is pulmonary edema and basilar atelectasis. There may be underlying infiltrates as well. There are small pleural effusions. IMPRESSION: No interval improvement. Electronically signed by Hossein Jenkins 01/07/2019 6:46 AM
--- NOTE | 2019-01-07 08:22 | PROGRESS NOTE ---
DATE: 01/07/2019 VITAL SIGNS: Temperature 98.5 degrees, heart rate 100, respirations 20, blood pressure 155/68, O2 saturation on nasal oxygen 100%. Chest x-ray about the same with persistent basilar infiltrates versus atelectasis. Inspiration was poor. LABORATORY: Hemoglobin 10.7, hematocrit 33.8, white blood count 14,100. Sodium 144, potassium 3.6, BUN 41, creatinine 3.7, albumin 2.5. PLAN: Change antibiotics to p.o. Keflex. Continue physical therapy. Consider rehab tomorrow if a bed is available. cc: Shelton Vernon MD
[2019-01-07] MEDS: TYLENOL PO PRN ×2 (09:07→16:03)
[2019-01-07] MEDS: KEFLEX PO SCH ×3 (09:07→21:19)
[2019-01-07] MEDS: PERIDEX MT SCH ×2 (09:08→21:19)
[2019-01-07] MEDS: CARDIZEM CD PO SCH (09:08)
--- NOTE | 2019-01-07 09:44 | NEPHROLOGY PROGRESS NOTE ---
DATE: 01/07/2019 SUBJECTIVE: Patient is resting in bed. She has not been up out of bed yet this morning. She states that she did ambulate yesterday. OBJECTIVE: Vital Signs: Temperature 97 degrees, pulse 98, respiratory rate 16, blood pressure 165/65. Intake 440 mL, output 1.4 L voided urine. Physical Examination: General: This is an elderly female, resting in bed. She is awake and alert. She does not appear in any distress. HEENT: Normocephalic, atraumatic. AAYUSH. Conjunctivae are pink. Her oral mucosa is moist. Neck: Supple. There is no JVD in a reclined position. Cardiovascular: Reveals a regular rate and rhythm. There is no murmur appreciated. Pulmonary: She is clear bilaterally. She remains on O2 supplementation via nasal cannula. Abdomen: Soft, with positive bowel sounds. : Not inspected. She has no voiding. Extremities: No clubbing, cyanosis, or edema. Integumentary: Her skin remains pale, warm, and dry. Lab Data: WBC of 14.1, hemoglobin 10.7. Sodium 144, potassium 3.6, CO2 20, creatinine 3.7 (4.2). ASSESSMENT AND PLAN: Acute kidney injury, acute tubular necrosis. The patient has had continued recovery with renal function. Urine output has been excellent. We will continue to follow while she is in the hospital. We have nothing further to add to her current treatment plan. We will plan to see her as an outpatient after discharge. Dictated by VERA Mensah for Marcello Washington MD Face to face encounter, data reviewed, discussed with Harry Panda on 01/07/19. I agree with the above assessment and plan of care. cc: MD Shelton Tang MD [facility]
[2019-01-07] MEDS: HUMALOG SUBQ SCH ×2 (11:50→16:05)
[2019-01-07] MEDS ORDERED: ZOFRAN PO PRN (17:02)
--- NOTE | 2019-01-07 20:20 | GENERAL SURGERY PROGRESS NOTE ---
DATE: 01/07/2019 SUBJECTIVE: She is more alert. She is having some crampy pain. Her bowels are functioning. She is tolerating a diet. No fevers. No tachycardia. OBJECTIVE: Abdomen is soft. I reviewed her labs. Her renal function continues to normalize. White count stable at 14. ASSESSMENT AND PLAN: A 68-year-old female status post repair of perforated duodenal ulcer. She is quite debilitated. Overall, she is doing okay. We will need to continue her PPI, but I think plan is for discharge to rehab soon with ongoing treatment for her resolving pneumonia and acute kidney injury. cc: MD Shelton Vilchis MD
[2019-01-07] MEDS: LYRICA PO SCH (21:19)
[2019-01-08] MEDS: HUMALOG SUBQ SCH ×4 (02:45→12:16)
[2019-01-08] MEDS: KEFLEX PO SCH ×2 (02:46→08:41)
[2019-01-08] MEDS: DUONEB (A & A) INH SCH ×2 (03:37→09:15)
[2019-01-08] MEDS: HEPARIN SUBQ SCH ×2 (04:41→12:17)
[2019-01-08 06:19] LABS: RDW 16.2 % (11.5-14.5)
[2019-01-08 07:04] LABS: ALBUMIN 2.6 g/dL (3.5-5.0); CALCIUM 8.1 mg/dL (8.8-10.2); CREATININE 3.1 mg/dL (0.5-0.9); PHOSPHORUS 3.8 mg/dL (2.7-4.5); POTASSIUM 3.6 mmol/L (3.5-5.1)
[2019-01-08 07:14] LABS: HEMATOCRIT 30.4 % (37.0-47.0); HEMOGLOBIN 9.7 g/dL (12.0-16.0); MCH 28.1 PG (27-31); MCHC 31.9 g/dL (33-37); MCV 88.1 FL (81-99); MPV 11.3 FL (7.4-10.4); RBC 3.45 XMIL (4.2-5.4); WBC 13.31 X1000 (4.8-10.8)
[2019-01-08] MEDS: PROTONIX PO SCH (07:23)
--- NOTE | 2019-01-08 08:01 | PROGRESS NOTE ---
DATE: 01/08/2019 VITAL SIGNS: Stable with temperature 98.4 degrees, heart rate 90, respirations 16, blood pressure 154/53, and O2 saturation on room air 92%. LABORATORY: Hemoglobin 9.7, hematocrit 30.4, white blood count 07556. Sodium 141, potassium 3.6, BUN 38, creatinine 3.1, glucose 172, albumin 2.6, and calcium 8.1. SUBJECTIVE: The patient is slowly improving. OBJECTIVE: Chest is clear. She is able to get up to the bathroom on a walker. PLAN: Rehab bed is pending. The p.o. antibiotics will be continued Keflex. cc: Shelton Vernon MD
[2019-01-08 08:17] VITALS: BP 167/62
[2019-01-08] MEDS: CARDIZEM CD PO SCH (08:40)
[2019-01-08] MEDS: PERIDEX MT SCH (08:41)
[2019-01-08] MEDS: TYLENOL PO PRN (08:41)
[2019-01-08] MEDS: LYRICA PO SCH (08:41)
--- NOTE | 2019-01-08 12:10 | DISCHARGE SUMMARY ---
ADMISSION DATE: 12/21/2018 DISCHARGE DATE: 01/08/2019 FINAL DIAGNOSES: 1. Ruptured gastric ulcer. 2. Diabetes type 2. 3. Bibasilar pneumonia. 4. Acute renal failure. 5. Diabetic neuropathy of her legs. DISPOSITION: [facility] for physical therapy and strengthening. HISTORY: This is the first recent [facility] admission for this 68-year-old white female who presented to the emergency room with moderately severe epigastric tenderness. She was found to have ruptured ulcer on diagnostic studies, and was admitted for surgical consultation and further evaluation. Consultations were made with Dr. Luna, surgeon. INITIAL LABORATORY: Hemoglobin 14.7, hematocrit 45, and white blood count 90725. Sodium 141, potassium 4.7, BUN 22, creatinine 0.8, and glucose 266. AST 121, ALT 410, and alkaline phosphatase 149. CPK 51. Troponin T less than 0.01. HOSPITAL COURSE: She underwent surgery with repair of gastric perforation. She was placed on intravenous antibiotics. She seemed to do well with recovery until the time when she was to go to rehab about 2 weeks ago, and suddenly developed a syncopal episode resulting in loss of consciousness. She subsequently developed renal failure and bilateral pneumonia. She was treated with Zosyn and vancomycin. Also given supportive care including oxygen. Nephrology consultation was made with Dr. Washington. Conservative care was done and she slowly improved with BUN 40 and creatinine 3.1 today. On 01/01, her BUN had been 48 and creatinine 6.0. Additional diagnosis includes protein and calorie malnutrition. She was changed to p.o. Keflex a couple of days ago, and seems to be tolerating this well. She has been afebrile. White blood count this morning was 13,000. On 12/29, it had been 20,000. She has been ambulatory with physical therapy and with a walker on her own to the bathroom. She is transferred to rehab today for continued strengthening and physical therapy. She will continue Keflex for another 10 days. cc: Shelton Vernon MD
--- NOTE | 2019-01-08 17:34 | NEPHROLOGY PROGRESS NOTE ---
DATE: 01/08/2019 SUBJECTIVE: She is sleeping. No new complaints. OBJECTIVE: Vital Signs: Blood pressure 167/62, heart rate 92, respiration 18, afebrile. General: No acute distress. Skin: Warm and dry. Conjunctivae are pink. Neck: Neck veins are not distended. Heart: Regular. Lungs: Equal. Extremities: Have no edema. IMPRESSION: Acute kidney injury. Resolving. Electrolytes/acid base/volume status/blood pressure all acceptable. We will be glad to follow her as an outpatient. cc: MD Shelton Tang MD
== END 2019-01-08 13:41 | DRG 329 ==
LOC: SUPCPDRO → ED 03:52 → ICU 13:00 → 4N 12-23 21:12
PROVIDERS: ADMIT Family Medicine; ATTEND Family Medicine
CPT/HCPCS: 36430; 70450; 71010; 71045; 74150; 74177; 78582; 80048; 80053; 80069; 80202; 81001; 82150; 82550; 82553; 82570; 82948; 83605; 84156; 84300; 84484; 84540; 85025; 85027; 85610; 85730; 86850; 86900; 86901; 86920; 87040; 87088; 87205; 88305; 88312; 93005; 93010; 93970; 94640; 94760; 94761; 94762; 96361; 96365; 96375; 97110; 97162; 97166; 97530; 99285; A9270; A9539; A9540; C9113; J0131; J0330; J0610; J1170; J1644; J1650; J1815; J2250; J2270; J2405; J2543; J3010; J3370; J7030; J7040; J7050; J7070; J7120; P9016; P9047; Q9967; S0164; XXXXX

== ENCOUNTER 2019-02-03 23:07 | Inpatient (IN) ==
[2019-02-03] MEDS ORDERED: NS 1,000 ML IV ONE (23:25)
[2019-02-03] MEDS ORDERED: ZOSYN 3.375 GM in NS 50 ML IV SCH (23:30)
--- NOTE | 2019-02-03 23:37 | PROVIDER DOCUMENTATION ---
HPI-Abdominal Pain/GI Problem - General Chief Complaint: Abdominal Pain Stated Complaint: POST OP COMPLAINTS Time Seen by Provider: 02/03/19 23:20 Source: patient, family Allergies/Adverse Reactions: Patient Allergies Allergy/AdvReac Type Severity Reaction Status Date / Time adhesive tape Allergy Intermediate skin Verified 02/03/19 23:44 blisters codeine Allergy Intermediate ITCHING Verified 02/03/19 23:44 latex Allergy Intermediate RASH Verified 02/03/19 23:44 levofloxacin [From Levaquin] Allergy Unknown Unknown Verified 02/03/19 23:44 Home Medications: Home Medication List Medication Instructions Recorded Confirmed Last Taken Type Citalopram Hydrobromide 20 mg PO DAILY 12/27/18 02/03/19 02/03/19 History [Citalopram HBr] Letrozole 2.5 mg PO DAILY 12/27/18 02/03/19 02/03/19 History Acetaminophen [Tylenol] 650 mg PO Q6H PRN PRN tab 01/08/19 02/03/19 Unknown Rx Esomeprazole Magnesium 20 mg PO DAILY 02/03/19 02/03/19 02/03/19 History Pregabalin [Lyrica] 150 mg PO DAILY 02/03/19 02/03/19 02/03/19 History Topiramate [Trokendi Xr] 25 mg PO HS 02/03/19 02/03/19 02/02/19 History - History of Present Illness-ABD Nature of Presenting Problems: HPI: Pt reports to Ed with acute abdominal pain, RLQ, and she states her abdomen popped, she had recent surgery 12/21 for perforated gastric ulcer, being followed by Jeremy. She states they is fluid brown and greenish purulent fluid flowing from her abdomen. She also complains of swelling and pain, 2/10 in the area, she states she feels hot and feels sick. she denies nausea or vomiting. Abdominal Pain Onset Location: reports: RLQ Pain Radiation: reports: epigastric Quality of Pain: reports: aching, burning, cramping, dull Severity in ED: reports: moderate Onset/Duration: reports: this evening Timing: reports: still present Activities at Onset: reports: light activity Exposure to sick contacts?: No Modifying Factors: improves with: nothing Associated Symptoms: reports: fever/chills, loss of appetite, malaise, weakness. denies: vomiting Last BM: this morning Dark Stools Present?: reports: none noticed Rectal Bleeding: reports: none Rectal Pain: reports: none Emesis Description: reports: none Bruising or Bleeding Gums?: No Similar Symptoms Previously?: No Recently seen or treated by another doctor?: Yes Review of Systems - Adult - REVIEW OF SYSTEMS - ADULT Constitutional: reports: no symptoms reported Eyes: reports: no symptoms reported Ears, Nose, Mouth & Throat: reports: no symptoms reported Cardiovascular: reports: no symptoms reported Respiratory: reports: no symptoms reported Gastrointestinal: reports: see HPI, abdominal pain Genitourinary: reports: no symptoms reported Musculoskeletal: reports: no symptoms reported Integumentary: reports: no symptoms reported Neurological: reports: no symptoms reported Psychiatric: reports: no symptoms reported Endocrine: reports: no symptoms reported Hematologic/Lymphatic: reports: no symptoms reported Allergic/Immunologic: reports: no symptoms reported All Other Systems: Reviewed and Negative Past History - Adult - PAST MEDICAL HISTORY-ADULT Review of Records: reports: Old Records Reviewed, Nursing Assessment Review, Medications Reviewed, Social history reviewed & non-contributory. Major Childhood Illnesses: reports: denies history Cardiovascular: reports: HTN Respiratory: reports: denies history Gastrointestinal: reports: other (perforated ulcer) Obstetrical/Gynecological: reports: denies history Genitourinary: reports: denies history Musculoskeletal: reports: denies history Neurological: reports: denies history Endocrine/Immune: reports: Diabetes Diabetes Type: Type 2 Diabetes controlled by:: PO Meds Other Conditions: reports: denies history - PRIOR SURGERIES/PROCEDURES Surgical/Procedure History: reports: recent surgery, other (perforated ulcer) - FAMILY HISTORY Family History: reviewed, not pertinent - SOCIAL HISTORY Smoking: denies Substance Use: none/never Alcohol Use Frequency: never Living Situation: family Physical Exam-General - PHYSICAL EXAM-ADULT Initial Vital Signs Reviewed: Yes - CONSTITUTIONAL General Appearance: moderate distress - EYES Eyes: PERRL/EOMI, pink conjunctivae - HEAD, EARS, NOSE, MOUTH & THROAT HENMT: normocephalic/atraumatic, moist mucous membranes - NECK Neck: non-tender, full range of motion - RESPIRATORY Respiratory: chest non-tender, lungs clear, normal breath sounds. negative: rales, rhonchi, stridor, wheezing - CARDIOVASCULAR Cardiovascular: normal peripheral pulses, regular rate, rhythm, no edema - GASTROINTESTINAL (ABDOMEN) Abdominal Exam: normal bowel sounds, soft, tenderness, other (20 cm area of swelling with small opening from previous drian removal, pus exspressed from wound site, hard, erythematous.). negative: non tender, guarding, rigid, rebound - LYMPHATIC Lymphatic: no adenopathy - MUSCULOSKELETAL Back Exam: normal inspection Extremity: normal range of motion, non-tender, normal gait Peripheral Pulses: radial (R): 2+, radial (L): 2+, dorsalis-pedis (R): 2+, dors zahida-pedis (L): 2+ - SKIN Integumentary: normal color, normal turgor, warm/dry - NEUROLOGIC Neurologic: grossly normal - PSYCHIATRIC Psych/Mental Status: normal mood/affect, normal thought content, normal thought process, oriented x 3 Progress - PLAN OF CARE/RESULTS Progress/Plan/Lab Results: Orders Category Date Time Status Cardiac Monitoring DIRECTED Care 02/03/19 23:20 Ordered IV Insertion ORDERED Care 02/03/19 23:20 Ordered Notify MD of + Sepsis Screen NOW Care 02/03/19 23:20 Ordered Notify Physician As Ordered Care 02/03/19 23:20 Ordered CHEST-1 VIEW [RAD] Stat Exams 02/03/19 23:[address] ABD/PELVIS W/PO AND IV CON [CT] Stat Exams 02/03/19 23:25 Ordered BLOOD CULTURE [BLDCUL] Stat Lab 02/03/19 23:20 Uncollected CBC WITH DIFF [HEME] Stat Lab 02/03/19 23:20 Uncollected CK PROFILE [SP CHEM] Stat Lab 02/03/19 23:20 Uncollected COMPREHENSIVE METABOLIC PANEL [CHEM] Stat Lab 02/03/19 23:20 Uncollected LACTATE, PLASMA [CHEM] Q3H Lab 02/03/19 23:30 Uncollected LACTATE, PLASMA [CHEM] Q3H Lab 02/04/19 02:30 Uncollected LACTATE, PLASMA [CHEM] Q3H Lab 02/04/19 05:30 Uncollected PROTIME WITH INR [COAG] Stat Lab 02/03/19 23:20 Uncollected PTT [COAG] Stat Lab 02/03/19 23:20 Uncollected ROUTINE CULTURE [RM] Stat Lab 02/03/19 23:20 Uncollected TROPONIN T Stat Lab 02/03/19 23:20 Uncollected URINALYSIS W/POSS RFLX CULT [URINALYSIS] Stat Lab 02/03/19 23:20 Uncollected Ns 1000 ml IV Bolus X1 Med 02/03/19 23:25 Ordered 0.9% Sodium Chloride Inj [Ns] 1,000 ml IV 999 mls/hr Vancomycin 1 gm IV Q12h Med 02/03/19 23:30 Ordered Vancomycin 1 gm/Ns 1 gm in 250 ml IV Q12H Zosyn 3.375 gm/Ns IV Q6h Med 02/03/19 23:30 Ordered Piperacillin/Tazobactam [Zosyn] 3.375 gm 0.9% Sodium Chloride Inj [Ns] 50 ml IV Q6H Oxygen Device Stat Oth 02/03/19 23:20 Ordered Result Diagrams: 02/03/19 23:25 02/03/19 23:25 - CONSULTS/PCP/HOSPITALIST Notification #1 *Consult/PCP/Hospitalist*: Dr Luna Time Discussed: 01:48 Reason/Comments: Notified of CT results, recommends LR @125, Vanc, Zosyn, Admit Departure - Departure Date of Disposition Decision: 02/03/19 Time of Disposition Decision: 01:52 DIAGNOSIS: Post op infection, UTI (urinary tract infection), Bowel obstruction, Abdominal wall abscess at site of surgical wound Disposition: ADMITTED INPATIENT 09 Certified Medical Emergency: Emergent Condition: Stable Additional Freetext Instructions: We have examined and treated you today on an emergency basis only. This was not a substitute for, or an effort to provide, complete medical care. In most cases, you must let your doctor check you again. Tell your doctor about any new or lasting problems. We cannot recognize and treat all injuries or illnesses in one Emergency Department visit. If you had special tests, such as X-rays or CT scans, will be reviewed by radiologist and will call you if there are any new suggestions Follow up with primary care provider in 1 to 2 days if no improvement. If you do not have a primary care provider, you need to choose one as soon as possible. Take medicines as prescribed. Monitor for any side effects or adverse events from medications. If any side effect, adverse event or rash develops, or if you suspect any other adverse reaction to the medication, then discontinue the medication immediately and contact clinic /PCP or go to the nearest ER. Narcotic meds / sedative meds instruction - patent advised not to drive, operate any machinery or go into water after taking meds as it may impair mental ability to react to the situation in an appropriate manner . Continue other current medicines. Follow up with PCP within 24-48 hours, or sooner if symptoms worsen or fail to improve. Patient / guardian verbalizes understanding of treatment plan, medication, and side effects and agrees with treatment plan. Patient leaves ER in stable condition and ambulatory state. Return to ER as needed. Discharge instructions reviewed verbally and given to patient in written form. Follow up with primary care provider. - Critical Care Note This patient required my direct & personal management of CC.: Yes Total Time (mins): 75 Critical Care Statement: This patient required my direct personal management to treat or rule out processes, the absence of which, could potentiallly result in sudden, clinically significant life or limb threatening deterioration. Attestation - Physician/ ISIAH Attestation Patient care was provided by Advanced Practice Provider:: No The physician spent face to face time with patient:: Yes Advanced Practice Provider documentation review:: Supervising physician onsite and consulted in the evaluation and care of this patient. The physician did have a face to face encounter with the patient.
[2019-02-03] MEDS ORDERED: NS 2,200 ML IV ONE (23:44)
[2019-02-04 00:14] LABS: ALB/GLOB RATIO 0.7; ALBUMIN 2.4 g/dL (3.5-5.0); POTASSIUM 4.4 mmol/L (3.5-5.1); TOTAL BILIRUBIN 0.55 mg/dL (0.20-1.00); TOTAL PROTEIN 5.7 g/dL (6.3-8.3)
[2019-02-04 00:17] LABS: BASO# 0.01 X1000 (0.0-0.2); BASO% 0.1 % (0.0-0.8); EOS# 0.04 X1000 (0.0-0.7); EOS% 0.3 % (0.0-10.0); HEMATOCRIT 26.4 % (37.0-47.0); HEMOGLOBIN 8.5 g/dL (12.0-16.0); IMM GRAN# 0.13 X1000 (0.0-0.04); IMM GRAN% 0.9 % (0.0-0.5); LYMPH% 5.7 % (20.5-51.1); MCH 25.9 PG (27-31); MCHC 32.2 g/dL (33-37); MCV 80.5 FL (81-99); MONO# 0.97 X1000 (0.11-0.59); MONO% 6.9 % (1.7-9.3); MPV 10.7 FL (7.4-10.4); NEUT# 12.04 X1000 (1.4-6.5); NEUT% 86.1 % (42.2-75.2); PLT 414 X1000 (130-400); RBC 3.28 XMIL (4.2-5.4); WBC 13.99 X1000 (4.8-10.8)
[2019-02-04 00:21] LABS: INR 1.2; PROTIME 16.1 Seconds (11.0-16.0)
[2019-02-04 00:22] LABS: PTT 33.9 Seconds (22.3-41.8)
[2019-02-04 01:29] LABS: URINE SOURCE CLEAN CATCH
[2019-02-04 01:42] LABS: BILIRUBIN URINE NEGATIVE (NEGATIVE); BLOOD URINE TRACE (NEGATIVE); COLOR YELLOW; GLUCOSE URINE NEGATIVE (NEGATIVE); KETONE URINE NEGATIVE (NEGATIVE); LEUKOCYTES URINE LARGE (NEGATIVE); NITRITE URINE POSITIVE (NEGATIVE); PH URINE 5.5; PROTEIN URINE 30 mg/dL (NEGATIVE); SP GRAVITY URINE 1.018; TURBIDITY URINE HAZY (CLEAR); UROBILINOGEN URINE NORMAL (NORMAL)
[2019-02-04] MEDS: VANCOMYCIN 1 GM/NS 1 GM/250 ML IVPB IV SCH ×2 (01:43→11:15)
[2019-02-04 01:44] LABS: UR EPITHELIAL CELLS <10 /HPF (<10); URINE BACTERIA 4+ /HPF; URINE RBC <10 /HPF (<10); URINE WBC TNTC /HPF (<10)
[2019-02-04] MEDS ORDERED: LR 1,000 ML IV ONE (01:48)
[2019-02-04] MEDS ORDERED: TYLENOL PR PRN (03:49)
[2019-02-04] MEDS ORDERED: SODIUM CHLORIDE 0.9% INJ SCH (03:49)
[2019-02-04] MEDS ORDERED: ZOFRAN IV PRN (03:49)
[2019-02-04] MEDS: PEPCID IV SCH ×2 (04:02→15:51)
[2019-02-04] MEDS: MORPHINE IV PRN ×3 (04:02→22:03)
[2019-02-04] MEDS: FLAGYL 500 MG/NS 500 MG/100 ML IVPB IV SCH ×4 (04:02→21:14)
[2019-02-04] MEDS: MAXIPIME 2 GM in NS 100 ML IV SCH ×2 (04:56→16:04)
--- NOTE | 2019-02-04 06:03 | HISTORY AND PHYSICAL ---
Addendum HISTORY: A 69-year-old woman with several weeks history of low-grade fever. She had a drain removed at Dr. Luna's office weeks ago, and has had residual non enlarging red area of the anterior abdomen where the drain was. The sister who is at bedside tells me that the patient has had low-grade fevers and worsening abdominal pain for the last couple of weeks. This evening the aforementioned area of redness and swelling popped open and purulent material has been coming out. As I stated earlier, this is the area where the surgical drain was placed. Currently, the patient is in extreme pain. PHYSICAL EXAMINATION: VITAL SIGNS: Blood pressure 130/65, heart rate 109, respirations 18, temperature is 98.4, and 95% on room air. GENERAL: Elderly woman in distress from pain. CARDIOVASCULAR: Exam was benign. She is pale anicteric. Dry oral mucosa. ABDOMEN: Protuberant with an area of redness and swelling localized in the right upper quadrant area. This area of redness was measured about 3 to 4 cm in the largest diameter. There is an opening draining out thick purulent material compressing, and it is very tender. No peritoneal signs noted however. There is a healed midline surgical scar. Bowel sounds are hypoactive. Pulse volume is diminished. LABORATORY DATA: White count 11813. Hemoglobin and hematocrit 8 and 26, platelets 414,000. BUN is 34 and creatinine 1.0, and sodium 132. CT scan is pending although my own personal review shows fluid in the peritoneal cavity and large distended stomach. There is still some density in the anterior abdominal musculature. She has a right pleural effusion. I am unsure if the aforementioned hyperdense area is tracking, and has an enterocutaneous fistula or localized area of pus. This seems to be also a large collection of fluid separate from the aforementioned, like a mass or like an abscess near the ascending colon. We will defer for official radiological read. ASSESSMENT: For now, the patient is septic. Fluids crystalloid to be given. IV Maxipime and Flagyl will be also given in addition to vancomycin. Pending on cultures from the opening, antibiotics will be deescalated. Dr. Luna has been notified and will see patient. Patient definitely needs surgical intervention. cc: MD Shelton Bernstein MD
--- NOTE | 2019-02-04 06:41 | Diag Imaging Result Doc PS360 ---
CT ABD/PELVIS W/PO AND IV CON - 02/03/2019 INDICATION: abdominal distension, purulent fluid from sugical COMPARISON: 12/25/2018 FINDINGS: There is a trace right pleural effusion that is smaller than the prior exam. There is some dependent atelectasis or consolidation of the right lung base. There is also some trace left basilar atelectasis. There appears to have been gastric bypass surgery. There is severe distention of the excluded portion of the stomach. The remainder of the duodenal loop is collapsed. There is a large contained air and fluid collection in the right abdomen. This fills the subhepatic space. This measures 12 x 11 x 11 cm in AP, lateral, and craniocaudal dimensions. Remainder of the small bowel and colon is normal. Oral contrast was administered, and there is no oral contrast leak visible. There is also some contained free air in the trey hepatis. Abdominal organs are normal. Urinary bladder and rectum are normal. Uterus is absent. There are moderate degenerative changes of the spine. No acute or suspicious bony lesion. IMPRESSION: 1. Large abscess in the subhepatic space. Small amount of free air at the trey hepatis. 2. Severe obstruction of the excluded portion of the stomach. 3. Right basilar consolidation. Trace right pleural effusion. 4. This report was discussed with Dr. Marian Johnson on 02/04/2019 at 1:45 AM and was readback. This exam was performed using automated exposure control, adjustment of mA or kV according to patient size, and/or use of iterative reconstruction technique Electronically signed by Mike Enrique 02/04/2019 6:39 AM
--- NOTE | 2019-02-04 07:05 | Diag Imaging Result Doc PS360 ---
EXAM: CHEST-1 VIEW 02/03/2019 HISTORY: sob TECHNIQUE: AP portable at 2344 COMMENT: Compared to 01/07/2019 there has been marked improvement in the pulmonary opacities. There is only slight residual basilar atelectasis particularly on the right. The heart size remains enlarged. IMPRESSION: Bibasilar atelectasis. Electronically signed by Hussain Weems 02/04/2019 7:03 AM
[2019-02-04] MEDS: HUMULIN R SUBQ SCH ×4 (07:06→21:13)
--- NOTE | 2019-02-04 07:21 | EKG Report ---
Test Performed on : 02/04/2019 01:59:09 AM Test Reason : sepsis Blood Pressure : / mmHG Vent. Rate : 112 BPM Atrial Rate : 112 BPM P-R Int : 162 ms QRS Dur : 086 ms QT Int : 330 ms P-R-T Axes : 045 -33 125 degrees QTc Int : 450 ms Sinus tachycardia. Left axis deviation Low voltage QRS Cannot rule out Anteroseptal infarct , age undetermined ST & T wave abnormality, consider lateral ischemia Abnormal ECG When compared with ECG of 22-DEC-2018 12:17, premature ventricular complexes. are no longer present Minimal criteria for Anteroseptal infarct are now present Nonspecific T wave abnormality no longer evident in Inferior leads Inverted T waves have replaced nonspecific T wave abnormality in Lateral leads Unconfirmed Result
--- NOTE | 2019-02-04 08:32 | PROGRESS NOTE ---
DATE: 02/04/2019 VITAL SIGNS: Temperature 98.6 degrees, heart rate 95, respiration 13, blood pressure 107/55, O2 saturation on 2 liters nasal oxygen 99%. The patient is a 69-year-old white female diabetic who recently had ruptured gastric ulcer followed by surgery and rehab. She developed increasing abdominal pain where a drainage tube in her right upper quadrant had been placed. She has been followed by Dr. Luna. She developed an abscess in the abdominal wall, which spontaneously drained yesterday, but she had moderate abdominal pain and presented to the emergency room. She was admitted for further evaluation and treatment including intravenous antibiotics and cultures. Dr. Luna was consulted. White blood count last night on admission was 13,900, hemoglobin 8.5, hematocrit 26.4, sodium 132, potassium 4.4, BUN 34, creatinine 1.0, calcium 8.0, alkaline phosphatase 143, CK 14, total protein 5.7, albumin 2.4, plasma lactate 1.0. Troponin T 0.020. Chest is clear. Abdominal wall reveals erythematous swelling right upper quadrant area of abscess. There is mild to moderate tenderness. She is very weak and poorly responsive. PLAN: Continue IV fluids and antibiotics with vancomycin, Flagyl, and Maxipime. She is n.p.o. cc: Shelton Vernon MD
--- NOTE | 2019-02-04 08:41 | HISTORY AND PHYSICAL ---
PRIMARY CARE PROVIDER: Dr. Shelton Vernon. CHIEF COMPLAINT: Abdominal pain and abdominal drainage. HISTORY OF PRESENT ILLNESS: Ms. Santos is a 69-year-old female, who was just recently admitted to our facility and was discharged on 01/08/2019. During this visit, she was treated for a ruptured gastric ulcer. She did undergo surgery with Dr. Luna on 12/21/2018 for a perforated duodenal ulcer. She had diffuse bilious peritonitis. She did undergo exploratory laparotomy with Chuck patch repair of perforated duodenal ulcer. Also during this visit, she did have bibasilar pneumonia and did have acute renal failure for which what was believed to be secondary to some hypotension. She was discharged to rehab for 21 days and has just recently been home for approximately 1-1/2 to 2 weeks. The patient's sister who was present at bedside states that she is back at home now and that she has been caring for her. She states that she at home is pretty much only ambulatory occasionally with a walker, was mainly in the wheelchair and in the bed. She states that the patient has not had her strength back since her surgery and being discharged from the hospital. She states that she has actually continued to be weak, and her weakness and overall strength is actually declining. She reports that when she initially arrived at rehab, she was able to ambulate easily with a walker down the hallway. So now, she has trouble even getting around. She states that over the past several weeks that she has not had a good appetite. She reports that the last few days she has hardly eaten anything. She has reported some nausea, but denies any vomiting. She has also had continued diarrhea as well. They deny any hematochezia or melena. Also, the patient's sister states that she has been short of breath for several weeks as well. She reportedly states that at the [facility] she was using p.r.n. oxygen, though states her oxygen saturations have been fine. They also did have her on what sounds to be nebulizer treatments. When the patient was asked to describe her shortness of breath, she said she feels like she has a band around her chest that is making her feel like she is short of breath. They reported that 1 to 2 weeks ago they did go see Dr. Luna at his office due to the patient in her right upper quadrant did have a spot that showed up on her right upper abdomen. The sister states that it felt almost like a knot and did have some discoloration. Dr. Luna thought it may be a bruise. Patient's sister states that since that time the knot did continue to grow in size. She also has been complaining of abdominal pain all across her upper abdomen, left epigastric and right upper quadrant, as well as right lower quadrant pain. Her sister also states she has been running a low-grade fever in the high 90s and low 100s. Though they denied her having any known body aches or chills, she has reported that she has been stating that she feels hot a lot, but they state this evening that the patient has had worsening pain in that the spot on her right upper quadrant pain, the knot that had formed, did rupture and had been draining a brownish green purulent drainage that they reported did have a foul odor. Her sister actually states it looked like she had fecal matter coming out of her stomach. Upon evaluation in the ER, the patient does have obvious swelling noted to her right upper quadrant. There is a wound noted. It does appear to be approximately the size of the end of a #2 pencil eraser. Coming from this opening is very thick, whitish, guevara-colored purulent drainage that does have a foul odor. There is surrounding erythema, swelling and tenderness. The patient is also tender in the right upper quadrant epigastric, left upper quadrant and right lower quadrant. Her abdomen did appear to be slightly distended as well, and bowel sounds were hyperactive. Her abdomen is I would say very slightly on the firm side. She did have a slightly elevated white blood cell count at 13,990. She also does appear to have a nitrite-positive urinary tract infection. The patient's vital signs: She is a little tachycardic and blood pressures are adequate, but slightly borderline. She is maintaining MAPS in the high 60s and low 70s. The patient does have a septic appearance. CT abdomen and pelvis with IV contrast does show a large abscess in the right abdomen. There were gas collections in the upper abdomen and trey hepatitis that are indeterminate. Radiologist recommended follow up to exclude perforated bowel. There was also a suspect obstruction of the bypass portion of the stomach. There was a focal wall thickening in the gastroduodenal junction. Dr. Johnson, the ER physician, did consult with Dr. Luna, making him aware of the CT findings and that the patient was being admitted. REVIEW OF SYSTEMS: A 14 point review of systems was conducted with the patient. All were negative, except for pertinent positives mentioned in the above HPI. PAST MEDICAL HISTORY: 1. History of breast cancer status post bilateral mastectomy. 2. History of renal cell cancer status post partial nephrectomy on the right. 3. Laparoscopic sleeve gastrectomy by Dr. Oliver several years ago. 4. Diabetes mellitus. 5. Hypertension. 6. Recent surgical repair of a perforated duodenal ulcer by Dr. Luna on 12/21/2018. 7. History of recent acute renal failure on her most previous admission. 8. Diabetic neuropathy of her bilateral lower extremities. PAST SURGICAL HISTORY: 1. Right partial nephrectomy. 2. Bilateral mastectomy with maintenance plumber/reconstruction. 3. Laparoscopic sleeve gastrectomy. 4. Recent surgical repair of a perforated duodenal ulcer. SOCIAL HISTORY: The patient has no known tobacco, alcohol or illicit drug use .up until her admission in December of 2018 for her perforated duodenal ulcer, the patient was working. 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 She used to be able to ambulate without assistance, though now does only ambulate occasionally with the assistance of a walker, though is mainly from her sister says at bedside in a wheelchair and bed over the last week or so. FAMILY HISTORY: Positive for her mother having COPD and hypertension, her father had a history of kidney cancer that metastasized. She does have a sister who has COPD. ALLERGIES: Patient has allergies to adhesive tape, codeine, latex and Levaquin. HOME MEDICATIONS: 1. Citalopram hydrobromide 20 mg p.o. daily. 2. Nexium 20 mg p.o. daily. 3. Letrozole 2.5 mg p.o. daily. 4. Lyrica 150 mg p.o. daily. 5. Januvia 100 mg p.o. daily. 6. Trokendi-XR 25 mg p.o. at bedtime. DIAGNOSTIC DATA/LABORATORY RESULTS: White blood cell count is 13,909, hemoglobin 8.5, hematocrit 26.4, platelet count is 414. PT 16.1, INR 1.2, PTT is 33.9. Sodium 132, potassium 4.4, chloride 95, serum bicarbonate is 22. BUN 34, creatinine 1 with a GFR of 55. Glucose 166, calcium 8. Liver function tests are within normal limits. Alkaline phosphatase is elevated at 143. CK 14 with a repeat of 13. Troponin is 0.032 with a repeat of 0.02Plasma lactate initial and repeat is 1. Urinalysis obtained via clean catch was positive for protein, trace blood, nitrite, large leukocytes, too numerous to count white blood cells and 4+ bacteria. EKG shows sinus tachycardia at a rate of 112. A chest x-ray maybe possibly some bibasilar atelectasis, though we are awaiting the official radiology read. In comparison to the previous patient's previous chest x-ray 1 month ago, there is improvement noted. CT abdomen and pelvis with IV contrast showed that there is a large abscess in the right abdomen laterally extending into the perihepatic space and trey hepatitis. The maximal diameter is approximately 11.5 cm. There are gas collections in the trey hepatis and upper abdomen which are indeterminate, though the radiologist recommended followup to exclude bowel perforation. There is also a suspected obstruction of the bypass portion of the stomach. There is focal wall thickening in the gastroduodenal junction. Please see full CT report for full detailed findings. PHYSICAL EXAMINATION: VITAL SIGNS: Temperature 97.4 degrees, heart rate 109, respirations 22, blood pressure is 111/61 with oxygen saturation 100% nasal cannula at 2 L. GENERAL: Ms. Santos is a pleasant, 69-year-old female, who does have an ill appearance noted. The patient does seem drowsy, though easily arousable with verbal stimulation. Once awoken, she is alert and oriented to person, place, and time. She is able to answer questions and follow commands. HEENT: Head is atraumatic, normocephalic. Pupils are equal, round, reactive to light, were 3 mm bilaterally and brisk. Subconjunctivae were slightly pale. Oral mucosa was moist. Oropharynx is clear. NECK: Supple. Trachea midline. CARDIOVASCULAR: Patient has S1, S2 present. No murmurs, gallops, rubs appreciated with a tachycardic rate, irregular rhythm. PULMONARY: Patient has symmetrical chest expansion bilaterally. Lung sounds are clear to auscultation in bilateral full lim. ABDOMEN: Very slightly on the firm side. She does appear to be slightly distended as well, and was tender upon palpation in left upper quadrant epigastric, right upper quadrant and right lower quadrant. The patient does have a centralized linear surgical scar noted from her recent abdominal surgery. Her [place] have been removed. Wound edges are together and closed. There was no erythema, warmth or drainage noted from her previous surgical wound, though in her right upper quadrant there is an area of swelling that does have a centralized wound noted that is approximately the size of the end of a #2 pencil eraser. She does have purulent drainage that is whitish guevara in color and is thick and does have a foul odor noted. There is area of erythema and warmth that is surrounding this wound. Bowel sounds are present, and all 4 quadrants were hyperactive. EXTREMITIES: No cyanosis, or edema noted. Pulse, motor, and sensory is intact in all extremities. Radial and pedal pulses were 2+ bilaterally. Capillary refill was less than 3. INTEGUMENTARY: The patient's skin color is pale, warm and dry. NEUROLOGICAL: Patient is alert and oriented to person, place and time. She is able to move all extremities. The patient does seem drowsy, though was easily arousable with verbal stimulation. The patient was occasionally kind of slow to answer some of my questions, though other than this she does not have any focal neurological deficits noted. ASSESSMENT AND PLAN: 1. A large right abdominal abscess. 2. There is also possible gas collections in the upper abdomen and trey hepatis that are indeterminate, and Radiology recommended to follow up to exclude bowel perforation. There was also a possible obstruction in the bypass portion of the stomach. For numbers 1 and 2, we have obtained a wound culture of the patient's drainage from her abscess in the right upper quadrant. She has been placed with antibiotic coverage of vancomycin, and though we did choose to place her on Flagyl and Maxipime given that on her most recent admission she did have acute kidney injury, the patient also does have a history of renal cell carcinoma with a partial right nephrectomy. Blood cultures were obtained as well. The patient will be placed on nothing by mouth. She did receive 2 liters normal saline bolus and has been placed on lactated Ringer's at 125 mL/hour. The patient does have possible sepsis as well. Dr. Luna with Surgery has been made aware of the patient, as well as her CT findings. We have placed a consult with him. We will await his evaluation and further recommendations for management. 3. Possible sepsis. We will continue with treatment as mentioned above for #1, though the patient did receive 2 liters normal saline bolus, is receiving lactated Ringer's at 125 mL/hour. She does have some mild leukocytosis noted with a white blood cell count of 13,990 though, and the patient's vital signs are within normal limits at this time, except for she is slightly tachycardic. She does appear to have adequate tissue perfusion as well. The patient does have a septic appearance noted. We will continue to monitor this closely. Given this as well as the patient's CT findings, we have placed her in the intensive care unit for close monitoring. We will continue to follow. 4. Urinary tract infection. The patient does have nitrite positive urinary tract infection. We will continue with antibiotics as mentioned above. We have placed a urine culture. 5. Diabetes mellitus. The patient is on nothing by mouth at this time. Given this, we have placed her with pattern fingerstick blood sugars and a patient-specific sliding scale insulin to be treated only for fingersticks that are above 200 while she is on nothing by mouth. 6. Vein thromboembolism prophylaxis. We provided with sequential compression devices. We will hold any anticoagulants given that the patient is likely a surgical candidate. She has been placed in ICU for close monitoring. We will do vital signs per ICU protocol. She will be on continuous cardiac telemetry and pulse oximetry. We will do strict intake and output. We will repeat a CBC and BMP later on in the late morning/ early afternoon. The patient's troponin was slightly elevated with initial reading of 0.032, though on repeat draws it is trending down. The patient was reporting some chest pain though when I ask her to point to it, it does appear it is in the epigastric area. I do believe this is likely related to her abdominal issues, though we did obtain EKG. It does not appear to have any acute ST changes in comparison to previous EKGs. We will continue with the series of cardiac enzymes, and we will continue to follow. Further orders and recommendations pending hospital course, diagnostic studies, and physician evaluation. Dictated by VERA Bowen for Carlo Streeter MD cc: MD Shelton Bernstein MD
--- NOTE | 2019-02-04 09:53 | Diag Imaging Result Doc PS360 ---
CT GUIDE ABD DRAINAGE W/CATH - 02/04/2019 INDICATION: abscess TECHNIQUE: The risks and benefits of the procedure were discussed with the patient's sister. All questions were answered. Written and verbal informed consent was obtained. Overlying skin was prepped and draped in sterile fashion. Anesthesia was achieved with injection of 10 cc of 1% lidocaine. COMPARISON: CT from earlier 02/04/2019 FINDINGS: The large right-sided abdominal abscess was drained successfully with a 12-Welsh catheter. About 300 cc of pus was aspirated. The catheter was anchored in place. The patient exhibited no symptoms from the procedure. IMPRESSION: Successful and uncomplicated CT-guided right-sided abdominal abscess drainage. Electronically signed by Mike Enrique 02/04/2019 9:51 AM
--- NOTE | 2019-02-04 12:33 | GENERAL SURGERY CONSULTATION ---
DATE: 02/04/2019 SUBJECTIVE: This patient is well known to me. She underwent a perforated duodenal ulcer repair with a Chuck patch back on December 21. She has had a prolonged extended hospital course. Has been weak at home with chronic pain and nausea but they noted increase in swelling and drainage from her drain site over the course of the day yesterday and today. In fact, we were arranging for a CT scan as an outpatient to further evaluate but she got worse overnight. She came to the ER where a right upper quadrant abscess was noted on CT scan. She is hemodynamically stable but having purulent drainage from her previous drain site. MEDICAL HISTORY: Obesity, chronic pain. She has a history of a perforated duodenal ulcer. She has a history of acute kidney injury. She does have a history of breast cancer with bilateral mastectomies and a history of a renal cell carcinoma. SURGICAL HISTORY: Orestes-en-Y gastric bypass. She had a Chuck patch repair of a duodenal perforation. She has had a right partial nephrectomy and bilateral mastectomies with tissue corrosion technician reconstruction. SOCIAL HISTORY: No tobacco, alcohol, or drugs. She has attentive family. FAMILY HISTORY: Reviewed and noncontributory. PHYSICAL EXAMINATION: General: She is in the ICU. Heart rate has been in the 90s. No fevers documented here. Blood pressures, MAPS in the 60s to 70s, with systolics in the 110s. She is chronically ill-appearing, appears uncomfortable, but no acute distress. HEENT: There is no scleral icterus. No cervical mass. Cardiovascular: Normal rate. Pulmonary: No increased work of breathing. Abdomen: Soft. There is some fullness in the right side of her abdomen with purulent drainage through a previous drain site. Her incisions are otherwise well healed. Integument is warm and dry. Peripheral Vascular: She has lower extremity edema bilaterally. Psychiatric: She is somewhat anxious appearing. Neurologic: No gross deficits. LABORATORY DATA: White count is 13, hematocrit is 26, platelets 414,000. INR is 1.20. Creatinine is 1.0, glucose 160s. Troponins were 0.032. She does have nitrites and leukocytes in her blood. I have reviewed her CT scan shows. It shows a large right upper quadrant abscess. Going forward, I have recommended percutaneous drainage of the right upper quadrant abscess. It is unclear if this is a reperforation or a leak related to or if this is just a right upper quadrant abscess. Catheter was placed this morning, CT guidance, with good results. We will monitor her going forward with antibiotics, bowel rest. She also appears to have some degree of a gastric outlet obstruction of her remnant stomach related to this. Hopefully, by draining the abscess, this will get better. We will keep her on acid suppression. She is on antibiotics. She is on the hospitalist service. I will follow along closely with her. cc: MD Shelton Vilchis MD
[2019-02-04 12:54] LABS: BASO# 0.02 X1000 (0.0-0.2); BASO% 0.2 % (0.0-0.8); EOS# 0.08 X1000 (0.0-0.7); EOS% 0.6 % (0.0-10.0); HEMATOCRIT 27.2 % (37.0-47.0); HEMOGLOBIN 8.5 g/dL (12.0-16.0); IMM GRAN# 0.16 X1000 (0.0-0.04); IMM GRAN% 1.2 % (0.0-0.5); LYMPH# 1.05 X1000 (1.2-3.4); LYMPH% 8.1 % (20.5-51.1); MCH 25.9 PG (27-31); MCHC 31.3 g/dL (33-37); MCV 82.9 FL (81-99); MONO# 1.02 X1000 (0.11-0.59); MONO% 7.9 % (1.7-9.3); MPV 10.6 FL (7.4-10.4); NEUT# 10.61 X1000 (1.4-6.5); PLT 381 X1000 (130-400); RBC 3.28 XMIL (4.2-5.4); RDW 16.7 % (11.5-14.5); WBC 12.94 X1000 (4.8-10.8)
[2019-02-04 13:39] LABS: AGAP 15; BUN 28 mg/dL (8-22); CALCIUM 7.9 mg/dL (8.8-10.2); CHLORIDE 102 mmol/L (98-107); COSMO 273; CREATININE 0.9 mg/dL (0.5-0.9); ESTIMATED GFR > 60; GLUCOSE 118 mg/dL (70-104); POTASSIUM 4.1 mmol/L (3.5-5.1); SODIUM 133 mmol/L (136-145); TCO2 16 mmol/L (25-35)
[2019-02-04] MEDS ORDERED: NS 1,000 ML IV SCH (21:45)
[2019-02-05] MEDS: VANCOMYCIN 1 GM/NS 1 GM/250 ML IVPB IV SCH ×2 (00:02→11:51)
[2019-02-05] MEDS: FLAGYL 500 MG/NS 500 MG/100 ML IVPB IV SCH ×2 (04:37→10:33)
[2019-02-05] MEDS: MAXIPIME 2 GM in NS 100 ML IV SCH (04:37)
[2019-02-05] MEDS: PEPCID IV SCH (04:38)
[2019-02-05] MEDS: MORPHINE IV PRN ×2 (04:38→08:41)
[2019-02-05 06:18] LABS: BASO# 0.03 X1000 (0.0-0.2); BASO% 0.2 % (0.0-0.8); EOS# 0.07 X1000 (0.0-0.7); EOS% 0.6 % (0.0-10.0); HEMATOCRIT 25.5 % (37.0-47.0); IMM GRAN% 1.6 % (0.0-0.5); LYMPH# 1.03 X1000 (1.2-3.4); LYMPH% 8.3 % (20.5-51.1); MCH 25.8 PG (27-31); MCHC 31.4 g/dL (33-37); MCV 82.3 FL (81-99); MONO# 1.05 X1000 (0.11-0.59); MONO% 8.5 % (1.7-9.3); MPV 10.9 FL (7.4-10.4); NEUT% 80.8 % (42.2-75.2); PLT 398 X1000 (130-400); RDW 16.6 % (11.5-14.5); WBC 12.38 X1000 (4.8-10.8)
[2019-02-05] MEDS: HUMULIN R SUBQ SCH ×2 (06:19→10:43)
[2019-02-05 06:28] LABS: AGAP 14; ALB/GLOB RATIO 0.5; ALBUMIN 1.9 g/dL (3.5-5.0); ALKALINE PHOSPHATASE 119 U/L (32-104); BUN 23 mg/dL (8-22); CALCIUM 7.9 mg/dL (8.8-10.2); CHLORIDE 109 mmol/L (98-107); COSMO 288; CREATININE 0.8 mg/dL (0.5-0.9); ESTIMATED GFR > 60; GLUCOSE 157 mg/dL (70-104); GOT 27 U/L (10-30); GPT 15 U/L (10-36); POTASSIUM 4.2 mmol/L (3.5-5.1); SODIUM 141 mmol/L (136-145); TCO2 18 mmol/L (25-35); TOTAL BILIRUBIN 0.37 mg/dL (0.20-1.00); TOTAL PROTEIN 5.8 g/dL (6.3-8.3)
--- NOTE | 2019-02-05 08:15 | PROGRESS NOTE ---
DATE: 02/05/2019 VITAL SIGNS: Temperature 98.3 degrees, heart rate 117, respirations 17, blood pressure 108/58, O2 saturation 2 liters nasal oxygen 97%. SUBJECTIVE: The patient is poorly responsive and weak. IV fluids were increase last night per sepsis protocol. LABORATORY: Hemoglobin 8.0, hematocrit 25.5, white blood count 12,400. Sodium 141, potassium 4.2, chloride 109, CO2 18. BUN 23, creatinine 0.8, blood sugar 149, calcium 7.9, alkaline phosphatase 119, bilirubin 0.37, total protein 5.8, albumin 1.9. PLAN: Continue supportive care. Lungs are clear to auscultation. Cultures are pending and antibiotics were continued. cc: Shelton Vernon MD
[2019-02-05 12:05] VITALS: BP 90/53
[2019-02-05] MEDS ORDERED: ATROPINE SYRINGE ONE ×2 (13:31→21:14)
--- NOTE | 2019-02-05 13:46 | EKG Report ---
Test Performed on : 02/05/2019 12:39:56 PM Test Reason : st elevation Blood Pressure : / mmHG Vent. Rate : 124 BPM Atrial Rate : 124 BPM P-R Int : 192 ms QRS Dur : 106 ms QT Int : 306 ms P-R-T Axes : 036 -03 117 degrees QTc Int : 439 ms Sinus tachycardia. Low voltage QRS Septal infarct , age undetermined ST & T wave abnormality, consider lateral ischemia Abnormal ECG When compared with ECG of February 04, 2019- QRS interval has increased. Confirmed by Carlos Weber MD ([id number]) on 02/05/2019 6:16:35 PM
[2019-02-05] MEDS ORDERED: NORCURON ONE (13:52)
[2019-02-05] MEDS ORDERED: VERSED ONE (13:52)
[2019-02-05] MEDS ORDERED: AMIDATE ONE (13:52)
[2019-02-05] MEDS ORDERED: QUELICIN ONE (13:53)
[2019-02-05 14:03] LABS: BLOOD TYPE ARTERIAL; SAMPLE BLOOD
[2019-02-05 14:04] LABS: ALLEN TEST YES; BE -22.9 mmoll (-3.0-3.0); HCO3-(ACT) 7.1 mmoll (20.0-26.0); METHB 0.3 % (0.0-1.5); O2(CT) 10.9 mL/dL (15.0-23.0); O2HB 96.8 % (95.0-99.0); PCO2(98.6) 22 mmHg (35-45); PO2(98.6) 119 mmHg (60-100); SAO2 97.6 % (95.0-100.0); THB 7.8 g/dL (11.5-17.4)
[2019-02-05 14:06] LABS: pH(98.6) 7.04 (7.35-7.45)
[2019-02-05 14:07] LABS: MODALITY NRB
--- NOTE | 2019-02-05 14:13 | Diag Imaging Result Doc PS360 ---
EXAM: CHEST-PORTABLE INDICATION: intubation TECHNIQUE: One view COMPARISON: 02/03/2019 FINDINGS: The newly placed ET tube tube projects over the trachea and above the cristi at about the T4 level. The newly placed NG tube projects below the diaphragm and is assumed to be in the lumen of the stomach in expected position. There is increased opacity at the mid and lower lung zones bilaterally suggesting pulmonary edema. There is a small right pleural effusion that has marginally larger. Cardiac silhouette is stable. IMPRESSION: 1.Interval placement of ET tube and NG tube in the expected positions as described. 2.Development of pulmonary edema and slight increase in size of the right pleural effusion. Electronically signed by Pal Munoz 02/05/2019 2:11 PM
[2019-02-05] MEDS ORDERED: DIPRIVAN 1% 1,000 MG/100 ML BOTTLE IV SCH (14:15)
[2019-02-05] MEDS ORDERED: NEO-SYNEPHRINE 50 MG in NS 250 ML IV SCH (14:15)
[2019-02-05] MEDS ORDERED: NS 250 ML ONE (14:17)
[2019-02-05] MEDS ORDERED: NS 1,000 ML IV SCH (14:30)
[2019-02-05 14:35] LABS: HEMATOCRIT 28.2 % (37.0-47.0); HEMOGLOBIN 8.4 g/dL (12.0-16.0); MCH 26.6 PG (27-31); MCV 89.2 FL (81-99); RBC 3.16 XMIL (4.2-5.4); WBC 42.18 X1000 (4.8-10.8)
[2019-02-05 14:36] LABS: BASO# 0.27 X1000 (0.0-0.2); BASO% 0.6 % (0.0-0.8); EOS# 0.09 X1000 (0.0-0.7); EOS% 0.2 % (0.0-10.0); IMM GRAN# 3.17 X1000 (0.0-0.04); IMM GRAN% 7.5 % (0.0-0.5); LYMPH# 7.43 X1000 (1.2-3.4); LYMPH% 17.6 % (20.5-51.1); MCHC 29.8 g/dL (33-37); MONO# 2.89 X1000 (0.11-0.59); MONO% 6.9 % (1.7-9.3); MPV 11.2 FL (7.4-10.4); NEUT# 28.33 X1000 (1.4-6.5); NEUT% 67.2 % (42.2-75.2); PLT 585 X1000 (130-400); RDW 17.8 % (11.5-14.5)
--- NOTE | 2019-02-05 14:38 | PROGRESS NOTE ---
DATE: 02/05/2019 SUBJECTIVE: This is a critical care note time a code blayne was called. HISTORY OF PRESENT ILLNESS: Mr. Santos is a patient of Dr. Shelton Vernon. At about 1320 amando cisneros was called. When I came multiple ICU nurses were already down there with the patient as well as respiratory. The patient I was told that she had been extremely tachycardic throughout the day, but then a couple minutes before the code she was moaning and she bradied down and atropine was given to her, but then after that they lost pulse. May be a round of CPR was done and pulse was regained immediately. When I arrived the patient did have pulse. Her heart rate was somewhere around 120. She was on face mask oxygenation by respiratory therapy, but she was still not very coherent or responding. At about 1333 patient moaned and lost pulse so CPR was immediately started. Atropine was given because she became extremely bradycardic. Subsequently, she got intubated at about 1343. Epi was given again at about 1343, another round of compression was done. A total of 2 epi's was given and 1 atropine after which the patient became stabilized. She got intubated. Chest x-ray was done which I reviewed. Tube seems to be normal at the normal place. There did not seem to be any complication. At the end of the code. The patient did have a blood pressure of 167/109 with a pulse of about 120. There was bilateral air moving into the lungs. Ms Santos's sister was notified by the nurse and Dr. Vernon was also notified by the nurse. cc: MD Shelton Ivan MD
[2019-02-05 14:48] LABS: BANDS 7 % (0-1); LYMPHS 15 % (21-51); MONO 4 % (1-9); SEGS 74 % (42-75)
[2019-02-05] MEDS ORDERED: ALBUMIN 25% IV SCH (15:00)
[2019-02-05 15:14] LABS: AGAP 16; BUN 17 mg/dL (8-22); CALCIUM 5.3 mg/dL (8.8-10.2); CHLORIDE 118 mmol/L (98-107); COSMO 284; CREATININE 0.5 mg/dL (0.5-0.9); ESTIMATED GFR > 60; GLUCOSE 113 mg/dL (70-104); POTASSIUM 3.4 mmol/L (3.5-5.1); SODIUM 141 mmol/L (136-145); TCO2 7 mmol/L (25-35); TOTAL BILIRUBIN 0.22 mg/dL (0.20-1.00); TOTAL PROTEIN 3.8 g/dL (6.3-8.3)
[2019-02-05 15:15] LABS: ALB/GLOB RATIO 0.4; ALKALINE PHOSPHATASE 86 U/L (32-104); GOT 54 U/L (10-30); GPT 16 U/L (10-36); MAGNESIUM 1.2 mg/dL (1.5-2.7); PHOSPHORUS 3.3 mg/dL (2.7-4.5)
[2019-02-05] MEDS ORDERED: SODIUM BICARBONATE 8.4% 150 MEQ in D5W 1,000 ML IV SCH (15:15)
--- NOTE | 2019-02-05 15:26 | Diag Imaging Result Doc PS360 ---
CHEST-PORTABLE - 02/05/2019 3:17 PM INDICATION: PICC placement COMPARISON: 2:02 PM FINDINGS: There is a right PICC line in good position with the catheter tip at the lower SVC. Stable endotracheal tube and nasogastric tube in good position. There is persistent consolidation of the right lung base. There is some improvement in the bibasilar pulmonary edema. IMPRESSION: Good PICC line placement. Apparent improvement in the pulmonary edema. Electronically signed by Mike Enrique 02/05/2019 3:23 PM
--- NOTE | 2019-02-05 16:11 | PROGRESS NOTE ---
DATE: 02/05/2019 ADDENDUM: At about 1516 hours, Ms. Santos went into another cardiac arrest. She anya 'd down and was given another dose of atropine. She lost pulse. CPR was started and the whole BLS and ACLS protocol was initiated. This went on from that time, 1516 hours to 1532 hours. About 1 amp of bicarb and 1 amp of calcium chloride were given. The patient was also given multiple rounds of epinephrine during that session of code. At 1 point, she went into ventricular tachycardia and she was given amiodarone. Unfortunately, at 1532 hours she continues to be in code. I spoke with the sister who has the power of regulatory attorney in the presence of the sister's daughter/ both of them made a decision not to do any more CPR or any more ACLS protocol, and they would want to keep her DNR level 1. The protocol was therefore aborted, and the patient was made DNR level 1. I have changed the status in the computer to reflect the discussion and the will of the family members. I will also notify the team. CPR has been discontinued, and the family have been asked to come in to see the patient. Dr. Vernon will be notified by the nurse. cc: MD Shelton Ivan MD
[2019-02-05] MEDS ORDERED: XYLOCAINE 2% VISCOUS ONE (16:57)
--- NOTE | 2019-02-05 19:23 | GENERAL SURGERY PROGRESS NOTE ---
DATE: 02/05/2019 SUBJECTIVE: Patient was seen this morning prior to 8:00, and she had been hemodynamically stable overnight with heart rate in the 90s for the most part, occasionally rising into the low 100s. She was having some discomfort, but seemed alert and was able to answer questions. She was on nasal cannula O2, but in no respiratory distress. Her abdomen was soft. Her drain had a moderate amount of purulent output and her integument was otherwise warm and dry. She was not on any vasopressors. Her lab showed that she had a modestly improving white count down to 12. Hematocrit was stable with normal renal function. Electrolytes showed a normal potassium. Her lactate was 1.1 yesterday. Unfortunately, this afternoon she developed a bradycardic Code event, was intubated and resuscitated, briefly regaining a pulse, but subsequently declined, and the family elected not to pursue this further. I issued my condolences, discussing with the family after this. Dr. Fernandez was present throughout the Code. cc: MD Shelton Vilchis MD
[2019-02-05] MEDS ORDERED: CORDARONE ONE (21:14)
[2019-02-05] MEDS ORDERED: EPINEPHRINE SYRINGE ONE (21:14)
[2019-02-05] MEDS ORDERED: CALCIUM CHLORIDE ONE (21:14)
[2019-02-05] MEDS ORDERED: D5W ONE (21:14)
[2019-02-05] MEDS ORDERED: SODIUM BICARBONATE 8.4% ONE (21:14)
[2019-02-05] MEDS ORDERED: MAGNESIUM SULFATE ONE (21:14)
--- NOTE | 2019-02-06 05:59 | DISCHARGE SUMMARY ---
ADMISSION DATE: 02/04/2019 DISCHARGE DATE: 02/05/2019 FINAL DIAGNOSES: 1. Cardiorespiratory arrest. 2. Sepsis. 3. Right upper quadrant abdominal abscess. 4. Gram-negative rods growing from abdominal wound and urine, ID pending, blood cultures negative at 48 hours. 5. Diabetes. 6. Protein and calorie malnutrition. CONSULTATIONS: Dr. Luna, and Dr. Yanez. HISTORY: This is one of a couple recent admissions for this 69-year-old white female who had gastric bypass many years ago and was admitted about a month ago for a perforated duodenal ulcer. She had a relatively complicated postoperative course and went to rehab following discharge. She had an intra-abdominal drain for over a week and over the past few days developed an intra- abdominal and abdominal wall abscess which was drained by Dr. Luna and a tube placed in the abscess. She was placed on antibiotics with vancomycin, Maxipime, and Flagyl. Abdominal pain improved following drainage of the abscess. She was somewhat lethargic this morning but responsive to simple questions. Heart rate was elevated this morning at 117. White blood count this morning was 12,400, and this afternoon 42,000. She had a sudden episode of bradycardia and hypotension, then asystole. She was given epinephrine and atropine with temporary return of heart rate. She then was coded and intubated. A couple of hours later about 3:30 she had another episode of bradycardia, hypotension, followed by asystole. Code was initiated, and discussion made with her sister who had [id number]. Decision was made that she should be a DNR level 1. This was done and the patient continued to deteriorate, expiring at 3:51 this p.m. Her body was released to the home. No autopsy or organ donation is planned. cc: Shelton Vernon MD
== END 2019-02-05 15:59 | disposition expired | DRG 862 ==
LOC: ED 23:07 → SUATTDRO 02-04 03:09 → ICU 02-04 03:09
PROVIDERS: ADMIT Family Medicine; ATTEND Family Medicine
CPT/HCPCS: 36569; 49041; 49405; 49406; 71010; 71045; 74177; 80048; 80053; 81001; 82533; 82550; 82805; 82948; 83605; 83735; 84100; 84484; 85025; 85610; 85730; 86850; 86900; 86901; 87040; 87070; 87077; 87088; 87186; 93005; 93010; 96361; 96365; 96367; 99285; 99291; J0171; J0282; J0330; J0461; J0692; J2250; J2270; J2543; J3370; J3475; J7030; J7050; J7120; Q9967; S0028; S0030; XXXXX